=== PATIENT | female | born 1960 | race Caucasian/White ===

== ENCOUNTER → 2017-04-16 | Outpatient (CLI) | payer BC | END | disposition home or self-care (01) | LOC: C.PAPS 14:02 | PROVIDERS: ATTEND Physician Assistant | DX: Z01.419 Encounter for gynecological examination (general) (routine) without abnormal findings (principal) ==

== ENCOUNTER → 2017-05-16 | Outpatient (CLI) | payer BC ==
--- NOTE | 2017-05-16 14:26 | MAMMOGRAPHY REPORT ---
BILATERAL DIGITAL SCREENING MAMMOGRAM TOMOSYNTHESIS WITH CAD: 05/16/2017 CLINICAL HISTORY: Routine screening. Patient has no complaints. TECHNIQUE: Breast tomosynthesis in addition to standard 2D mammography was performed. Current study was also evaluated with a Computer Aided Detection (CAD) system. COMPARISON: Comparison is made to exams dated: 04/09/2016 mammogram, 04/05/2015 mammogram, 03/25/2014 mammogram, 03/12/2013 mammogram, 04/20/2011 ultrasound, and 04/20/2011 mammogram - [facility]. BREAST COMPOSITION: The tissue of both breasts is heterogeneously dense, which may obscure small mas ses. FINDINGS: No suspicious masses, calcifications, or areas of architectural distortion are noted in ei ther breast. There has been no significant interval change compared to prior exams. IMPRESSION: ACR BI-RADS CATEGORY 1: NEGATIVE There is no mammographic evidence of malignancy. A 1 year screening mammogram is recommended. The pa tient will receive written notification of the results. Approximately 10% of breast cancers are not detected with mammography. A negative mammographic report should not delay biopsy if a clinically suggestive mass is present. Gail Singleton M.D. /:05/16/2017 12:36:18 Hat Liner: Mayelin Beth, [facility] letter sent: Normal 1/2 BI-RADS Code: ACR BI-RADS Category 1: Negative
== END | disposition home or self-care (01) ==
LOC: C.MAMM 09:45
PROVIDERS: ATTEND Physician Assistant
DX: Z12.31 Encounter for screening mammogram for malignant neoplasm of breast (principal)

== ENCOUNTER 2018-11-08 20:01 | Inpatient (IN) ==
[2018-11-08] MEDS ORDERED: KETOROLAC TROMETHAMINE 15 MG/ML VIAL IV STA (20:15)
[2018-11-08] MEDS ORDERED: SODIUM CHLORIDE 0.9% 1000ML 1,000 ML IV ONE (20:15)
[2018-11-08] MEDS ORDERED: ONDANSETRON INJ 2 MG/ML 2 ML VIAL IV STA (20:15)
[2018-11-08 20:45] LABS: Basophils # (auto) 0.03 K/uL (0-0.2); Basophils % (auto) 0.4 %; Eosinophils % (auto) 3.7 %; Hematocrit (blood only) 42.8 % (37-47); Hemoglobin 14.9 g/dL (12.0-16.0); Immature Granulocytes # (auto) 0.04 K/uL (0.00-0.02); Immature Granulocytes % (auto) 0.5 %; Lymphocytes # (auto) 1.16 K/uL (1.2-3.4); Lymphocytes % (auto) 14.5 %; Mean Corpuscular Hgb Conc 34.8 g/dL (32-36); Mean Corpuscular Volume 85.9 fL (80-100); Mean Platelet Volume 11.8 fL (7.4-10.4); Monocytes # (auto) 0.63 K/uL (0.11-0.59); Monocytes % (auto) 7.9 %; Neutrophils # (auto) 5.86 K/uL (1.4-6.5); Platelet Count 230 K/uL (130-400); RDW Coefficient of Variation 12.9 % (11.5-14.5); RDW Standard Deviation 40.9 fL (36.4-46.3); Red Blood Count 4.98 M/uL (4.2-5.4); White Blood Count 8.02 K/uL (4.8-10.8)
[2018-11-08 20:56] LABS: Partial Thromboplastin Ratio 0.9; Partial Thromboplastin Time 25.5 Seconds (21.0-31.0); Prothrombin Time 10.3 Seconds (9.0-12.0)
[2018-11-08 20:57] LABS: D Dimer 720 ug/L FEU (0-500)
[2018-11-08 21:07] LABS: Alanine Aminotransferase 607 U/L (12-78); Albumin Level 3.6 gm/dl (3.4-5.0); Alkaline Phosphatase 277 U/L (45-117); BUN Creatinine Ratio 11.3 (10-20); Bilirubin,Total 3.7 mg/dl (0.2-1); Blood Urea Nitrogen 11 mg/dl (7-18); Calcium 9.5 mg/dl (8.5-10.1); Carbon Dioxide 22 mmol/L (21-32); Chloride 108 mmol/L (98-107); Creatinine Clr Calc Pharmacy 72.5 ml/min; Est GFR (African American) 78.5; Est GFR (Non-African American) 67.7; Glucose 166 mg/dl (70-99); Sodium 139 mmol/L (136-145); Total Protein 7.6 gm/dl (6.4-8.2); Troponin I < 0.015 ng/ml (0-0.045)
--- NOTE | 2018-11-08 21:08 | XRay Report ---
XR abdomen 2V w PA chest CLINICAL HISTORY: 58 years-old Female presenting with epigastric pain. TECHNIQUE: PA view of the chest and supine and upright views of the abdomen were obtained. COMPARISON: None. FINDINGS: Atherosclerosis of the aortic arch. Cardiac silhouette normal in size. Lungs and pleural spaces clear . Nonobstructive bowel gas pattern. No gross pneumoperitoneum. Allowing for bowel gas and stool, no calcifications to suggest nephrolithiasis. Osseous structures normal. IMPRESSION: 1. No acute cardiopulmonary disease. 2. No radiographic evidence of acute intra-abdominal pathology. Electronically signed by: Nash Brand M.D. 11/08/2018 9:07 PM
[2018-11-08] MEDS ORDERED: OPTIRAY 320 125ml IV PRN (21:43)
--- NOTE | 2018-11-08 21:50 | CT Scan Report ---
CT angio chest PE protocol CLINICAL HISTORY: 58 years-old Female presenting with atypical chest pain, shortness of breath. TECHNIQUE: Multidetector CT angiography of the chest was performed after administration of intravenou s contrast. 3-D volumetric and/or maximum intensity projection (MIP) images were subsequently reconst ructed for review. IV contrast: 84 mL of Optiray 320. One or more dose lowering techniques were used consistent with the principles of ALARA (as low as reasonably achievable), including automatic exposu re control, mA or kV adjustment to individual patient size, and/or use of iterative reconstruction. COMPARISON: Chest x-ray performed earlier today. CT DOSE (mGy.cm): The estimated cumulative dose is 282.14 mGy.cm. FINDINGS: Private Sector Executive topogram: Unremarkable. Pulmonary vasculature: The study is suboptimal for the assessment of the pulmonary vascular tree secondary to timing of the contrast bolus. No filling defect within the pulmonary arteries to suggest embolus. Main pulmonary ar tere is not enlarged. No flattening of the interventricular septum. No intracardiac filling defect. N o reflux of contrast into the hepatic veins. Remaining chest: Soft tissues: Normal thyroid and thoracic inlet. No axillary, supraclavicular, mediastinal, or hilar lymphadenopathy. Normal aorta. Normal heart size. No pericardial or pleural effusion. Upper abdomen n ormal. Lungs and airways: No pneumothorax. Central airways patent. Pulmonary arteries are not significantly enlarged relative to adjacent bronchi. No interlobular septal thickening. No focal infiltrate or nodu le. Musculoskeletal: Degenerative changes of the spine. IMPRESSION: 1. No evidence of pulmonary embolus. No acute intrathoracic pathology. Electronically signed by: Nash Brand M.D. 11/08/2018 9:48 PM
[2018-11-08 22:04] LABS: Potassium 3.8 mmol/L (3.5-5.1)
[2018-11-08 22:09] LABS: Bilirubin Direct 2.1 mg/dl (0-0.2)
--- NOTE | 2018-11-08 22:31 | Ultrasound Report ---
US gallbladder CLINICAL HISTORY: 58 years-old Female presenting with ro raad. TECHNIQUE: Real-time grayscale and limited color Doppler ultrasound imaging of the abdomen limited to the right upper quadrant was performed. COMPARISON: Abdominal radiograph from earlier this. FINDINGS: Pancreas: Visualized portions of the pancreatic head and body normal. Liver: Mildly hyperechogenic parenchyma, although the right hemidiaphragm remains visible, likely ind icating mild steatosis. Hyperechogenicity along the portal triads evident. The liver measures 13.8 cm in maximal sagittal dimension. No sonographic evidence of hepatic mass. Main portal vein patent with normal directional flow. Biliary: No intrahepatic biliary ductal dilatation. Common bile duct measures up to 4 mm in diameter. Gallbladder: Gallstones without evidence of gallbladder distention, wall thickening, or pericholecyst ic fluid or inflammatory change. Sonographic Landis's sign negative. Right kidney: Normal in appearance without evidence of hydronephrosis. Ascites: None. Other: None. IMPRESSION: 1. Hyperechogenicity along the portal triads in the liver parenchyma can be seen in the setting of h epatic arteriosclerosis. These foci do not convincingly localize to the portal veins in the central p ortion of the liver. Portal venous gas is not favored and was not evident on abdominal radiograph fro m earlier this exam. 2. Mild hepatic steatosis. 3. Cholelithiasis. No convincing evidence of cholecystitis. No biliary ductal dilatation. Electronically signed by: Nash Brand M.D. 11/08/2018 10:29 PM
--- NOTE | 2018-11-08 22:43 | Emergency Department Note ---
Entered by Virginie Coats acting as a scribe for Didier Wood History of Present Illness General Chief complaint: Nausea Stated complaint: NAUSEA, SEVERE PAIN, LOOSE STOOL, DEHYDRATION Time Seen by Provider: 11/08/18 20:12 Source: patient Mode of arrival: ambulatory Limitations: no limitations History of Present Illness Onset (ago): day(s) 3 Location: abdomen Pain Consistency: + constant Maximum Pain Intensity: 10 Exacerbated By: + other (She states that the abdominal pain is exacerbated with pressure. ) Associated symptoms: + nausea/vomiting, + shortness of breath and + other (The patient complains of back pain, upper abdominal pain, and diarrhea. The patient denies melena. ) The patient is a 58 year old female with a history of section who presents to the ED with complaints of constant nausea that onset 3 days ago. She notes that she had cataract surgery 4 days ago. The patient complains of back pain, upper abdominal pain, diarrhea, vomiting, and shortness of breath. She states that the abdominal pain is exacerbated with pressure. The patient denies melena. She denies alcohol use. Home Medications Home Medications Medication Instructions Recorded Confirmed Type ondansetron 4 mg PO Q8H PRN 11/08/18 11/08/18 History Allergies Allergy/AdvReac Type Severity Reaction Status Date / Time No Known Allergies Allergy Verified 11/08/18 20:45 Past Med/Surg History Medical History No known health problems Surgical History History of bilateral tubal ligation History of cataract surgery LEFT CATARACT History of section History of colonoscopy History of open reduction and internal fixation (ORIF) procedure RIGHT ANKLE Hx of LASIK S/P hardware removal RIGHT ANKLE Family History Mother Family hx colonic polyps Sister FHx: breast cancer, Onset Age: 58 Social History Preferred Language: Belarusian Communication Ability: Effective Beliefs That Will Affect Care: None Current Living Situation: Spouse Feels Safe at Home: Yes Smoking Status: Never smoker Second Hand Exposure: Yes ( A CHILD) Hx Alcohol Use: Yes Alcohol type: hard liquor Hx Substance Use: No Review of Systems See HPI for pertinent positives & negatives. and A total of 10 systems reviewed and were otherwise negative Physical Exam Vital Signs Vital Signs - 24 hr 11/08/18 20:03 11/08/18 21:58 11/08/18 22:33 Temperature 36.7 C Temperature Source Oral Sepsis Recent Fever Within 48 Hours No Sepsis New/Unexplained Change in Mental Status No Sepsis Action Taken by Nursing No Action Required Pulse Rate 75 70 Pulse Rate [Bilateral Apical] 70 68 Pulse Rhythm Regular Pulse Rhythm [Bilateral Apical] Regular Regular Pulse Strength [Bilateral Apical] Normal Normal Respiratory Rate 16 20 18 Respiratory Effort / Characteristics Non-Labored Spontaneous Respiratory Depth Normal Normal Respiratory Pattern Regular Blood Pressure 156/77 H Blood Pressure [Right Arm] 136/78 139/80 Blood Pressure Mean 103 Blood Pressure Mean [Right Arm] 97 99 Blood Pressure Position [Right Arm] Sitting Pulse Oximetry 96 97 94 Oxygen Delivery Method Room Air Room Air GENERAL: She is oriented to person, place, and time. She appears well-developed and well-nourished. She does not appear distressed. HENT: Exam performed. - Head: Normocephalic and atraumatic. - Right Ear: External ear normal. No mastoid tenderness. - Left Ear: External ear normal. No mastoid tenderness. - Mouth/Throat: The oropharynx is clear and moist. No trismus in the jaw. No dental abscesses or uvula swelling. No oropharyngeal exudate or tonsillar abscesses. EYES: Conjunctivae and EOM are normal. Pupils are equal, round, and reactive to light. Right eye exhibits no discharge. Left eye exhibits no discharge. Scleral icterus present. NECK: Normal range of motion. Neck supple. No JVD present. No spinous process tenderness present. No carotid bruit present. No rigidity. No tracheal deviation and normal range of motion present. No Brudzinski's sign and no Kernig's sign noted. CV: Normal rate, regular rhythm, normal heart sounds and intact distal pulses. There is no peripheral edema. Palpable radial pulses bue. PULM/CHEST: Effort normal and breath sounds normal. No respiratory distress. No stridor. She has no wheezes. She has no rales. Chest Wall: She exhibits no tenderness. ABD: The abdomen is soft. Bowel sounds are normal. She has no distension. No mass is present. There is tenderness of the epigastric and right upper quadrant. There is no rebound, no guarding, no Landis's sign and no tenderness at McBurney's point. Rovsig negative MUSC/SKEL: Normal range of motion. There is no peripheral edema, tenderness or deformity. LYMPH: No cervical adenopathy. NEURO: She is alert and oriented to person, place, and time. She has normal strength. No cranial nerve deficit or sensory deficit. Coordination and gait normal. GCS eye subscore is 4. GCS verbal subscore is 5. GCS motor subscore is 6. cerbellar tests wnl. SKIN: Skin is warm and dry. She is not diaphoretic. PSYCH: She has a normal mood and affect. Her behavior is normal. Judgment and thought content normal. Course 2013: Past medical records reviewed. The patient was evaluated in room B7. A complete history and physical examination was performed. 2131: Vital signs stable. Labs show a bilirubin of 3.7, ALT 607, and alkaline phosphatase 277. X-ray was within normal limits and the D-dimer was positive at 720. The patient will have a CTA of the chest to rule out PE in addition to an US to result out cholelithiasis. 2241: Signs stable. Ultrasound shows cholelithiasis no concerning evidence for cholecystitis. Mild hyper echogenicity along the portal triads and liver parenchyma can be seen in setting of hepatic arterial sclerosis. Portal venous gas not favored. Given these findings, the [facility] He will evaluate the patient further. Administered Medications Ioversol (Optiray 320 125ml) 84 ml IV ONCE PRN PRN Reason: Interaction Checking Stop: 11/12/18 21:42 Last Admin: 11/08/18 21:43 Dose: 84 ml Documented by: [id number] Discontinued Medications Sodium Chloride (Nss 1000ml) 1,000 mls @ 999 mls/hr IV .Q1H1M ONE Stop: 11/08/18 21:15 Last Infusion: 11/08/18 21:35 Dose: 0 mls/hr Documented by: [id number] Admin: 11/08/18 20:35 Dose: 999 mls/hr Documented by: [id number] Ketorolac Tromethamine (Toradol) 15 mg IV NOW STA Stop: 11/08/18 20:16 Last Admin: 11/08/18 20:38 Dose: 15 mg Documented by: [id number] Ondansetron HCl (Zofran) 4 mg IV NOW STA Stop: 11/08/18 20:16 Last Admin: 11/08/18 20:36 Dose: 4 mg Documented by: [id number] Medical Decision Making Medical Records Attestation: I reviewed the patient's medical records. Home Medications Current Medication List: was personally reviewed by me Laboratory Data Attestation: I reviewed the patient's lab results. Result diagrams: 11/08/18 20:30 11/08/18 21:39 Lab Results 11/08/18 11/08/18 11/08/18 Range/Units 20:30 20:30 20:30 WBC 8.02 (4.8-10.8) K/uL RBC 4.98 (4.2-5.4) M/uL Hgb 14.9 (12.0-16.0) g/dL Hct 42.8 (37-47) % MCV 85.9 (80-100) fL MCH 29.9 (25-34) pg MCHC 34.8 (32-36) g/dL RDW Std Deviation 40.9 (36.4-46.3) fL RDW Coeff of [place] 12.9 (11.5-14.5) % Plt Count 230 (130-400) K/uL MPV 11.8 H (7.4-10.4) fL Immature Gran % (Auto) 0.5 % Neut % (Auto) 73.0 % Lymph % (Auto) 14.5 % [place] % (Auto) 7.9 % Eos % (Auto) 3.7 % Baso % (Auto) 0.4 % Immature Gran # (Auto) 0.04 H (0.00-0.02) K/uL Neut # (Auto) 5.86 (1.4-6.5) K/uL Lymph # (Auto) 1.16 L (1.2-3.4) K/uL [place] # (Auto) 0.63 H (0.11-0.59) K/uL Eos # (Auto) 0.30 (0-0.5) K/uL Baso # (Auto) 0.03 (0-0.2) K/uL PT 10.3 (9.0-12.0) Seconds INR 1.0 (0.9-1.1) APTT 25.5 (21.0-31.0) Seconds PTT Ratio 0.9 D-Dimer 720 H* (0-500) ug/L FEU Sodium 139 (136-145) mmol/L Potassium (3.5-5.1) mmol/L Chloride 108 H (98-107) mmol/L Carbon Dioxide 22 (21-32) mmol/L Anion Gap 9.0 (3-11) BUN 11 (7-18) mg/dl Creatinine 0.93 (0.6-1.2) mg/dl Est Cr Clr Drug Dosing 72.5 ml/min Est GFR ( Amer) 78.5 Est GFR (Non-Af Amer) 67.7 BUN/Creatinine Ratio 11.3 (10-20) Glucose 166 H (70-99) mg/dl Calcium 9.5 (8.5-10.1) mg/dl Total Bilirubin 3.7 H (0.2-1) mg/dl Direct Bilirubin (0-0.2) mg/dl AST (15-37) U/L ALT 607 H (12-78) U/L Alkaline Phosphatase 277 H (45-117) U/L Troponin I < 0.015 (0-0.045) ng/ml Total Protein 7.6 (6.4-8.2) gm/dl Albumin 3.6 (3.4-5.0) gm/dl Lipase 129 (73-393) U/L Specimen Hemolysis Cancelled 11/08/18 Range/Units 21:39 WBC (4.8-10.8) K/uL RBC (4.2-5.4) M/uL Hgb (12.0-16.0) g/dL Hct (37-47) % MCV (80-100) fL MCH (25-34) pg MCHC (32-36) g/dL RDW Std Deviation (36.4-46.3) fL RDW Coeff of [place] (11.5-14.5) % Plt Count (130-400) K/uL MPV (7.4-10.4) fL Immature Gran % (Auto) % Neut % (Auto) % Lymph % (Auto) % [place] % (Auto) % Eos % (Auto) % Baso % (Auto) % Immature Gran # (Auto) (0.00-0.02) K/uL Neut # (Auto) (1.4-6.5) K/uL Lymph # (Auto) (1.2-3.4) K/uL [place] # (Auto) (0.11-0.59) K/uL Eos # (Auto) (0-0.5) K/uL Baso # (Auto) (0-0.2) K/uL PT (9.0-12.0) Seconds INR (0.9-1.1) APTT (21.0-31.0) Seconds PTT Ratio D-Dimer (0-500) ug/L FEU Sodium (136-145) mmol/L Potassium 3.8 (3.5-5.1) mmol/L Chloride (98-107) mmol/L Carbon Dioxide (21-32) mmol/L Anion Gap (3-11) BUN (7-18) mg/dl Creatinine (0.6-1.2) mg/dl Est Cr Clr Drug Dosing ml/min Est GFR ( Amer) Est GFR (Non-Af Amer) BUN/Creatinine Ratio (10-20) Glucose (70-99) mg/dl Calcium (8.5-10.1) mg/dl Total Bilirubin (0.2-1) mg/dl Direct Bilirubin 2.1 H (0-0.2) mg/dl AST 138 H (15-37) U/L ALT (12-78) U/L Alkaline Phosphatase (45-117) U/L Troponin I (0-0.045) ng/ml Total Protein (6.4-8.2) gm/dl Albumin (3.4-5.0) gm/dl Lipase (73-393) U/L Specimen Hemolysis Imaging Data Radiologist's Impression: Radiology results as stated below per my review and the radiologist's interpretation: CT angio chest PE protocol CLINICAL HISTORY: 58 years-old Female presenting with atypical chest pain, shortness of breath. TECHNIQUE: Multidetector CT angiography of the chest was performed after administration of intravenous contrast. 3-D volumetric and/or maximum intensity projection (MIP) images were subsequently reconstructed for review. IV contrast: 84 mL of Optiray 320. One or more dose lowering techniques were used consistent with the principles of ALARA (as low as reasonably achievable), including automatic exposure control, mA or kV adjustment to individual patient size, and/or use of iterative reconstruction. COMPARISON: Chest x-ray performed earlier today. CT DOSE (mGy.cm): The estimated cumulative dose is 282.14 mGy.cm. FINDINGS: Insurance Sales Producer topogram: Unremarkable. Pulmonary vasculature: The study is suboptimal for the assessment of the pulmonary vascular tree secondary to timing of the contrast bolus. No filling defect within the pulmonary arteries to suggest embolus. Main pulmonary artery is not enlarged. No flattening of the interventricular septum. No intracardiac filling defect. No reflux of contrast into the hepatic veins. Remaining chest: Soft tissues: Normal thyroid and thoracic inlet. No axillary, supraclavicular, mediastinal, or hilar lymphadenopathy. Normal aorta. Normal heart size. No pericardial or pleural effusion. Upper abdomen normal. Lungs and airways: No pneumothorax. Central airways patent. Pulmonary arteries are not significantly enlarged relative to adjacent bronchi. No interlobular sep john thickening. No focal infiltrate or nodule. Musculoskeletal: Degenerative changes of the spine. IMPRESSION: 1. No evidence of pulmonary embolus. No acute intrathoracic pathology. Electronically signed by: Nash Brand M.D. 11/08/2018 9:48 PM Dictated: 11/08/182143 Transcribed: 11/08/182143 XR abdomen 2V w PA chest CLINICAL HISTORY: 58 years-old Female presenting with epigastric pain. TECHNIQUE: PA view of the chest and supine and upright views of the abdomen were obtained. COMPARISON: None. FINDINGS: Atherosclerosis of the aortic arch. Cardiac silhouette normal in size. Lungs and pleural spaces clear. Nonobstructive bowel gas pattern. No gross pneumoperitoneum. Allowing for bowel gas and stool, no calcifications to suggest nephrolithiasis. Osseous structures normal. IMPRESSION: 1. No acute cardiopulmonary disease. 2. No radiographic evidence of acute intra-abdominal pathology. Electronically signed by: Nash Brand M.D. 11/08/2018 9:07 PM Dictated: 11/08/182104 Transcribed: 11/08/182104 US gallbladder CLINICAL HISTORY: 58 years-old Female presenting with ro raad. TECHNIQUE: Real-time grayscale and limited color Doppler ultrasound imaging of the abdomen limited to the right upper quadrant was performed. COMPARISON: Abdominal radiograph from earlier this. FINDINGS: Pancreas: Visualized portions of the pancreatic head and body normal. Liver: Mildly hyperechogenic parenchyma, although the right hemidiaphragm remains visible, likely indicating mild steatosis. Hyperechogenicity along the portal triads evident. The liver measures 13.8 cm in maximal sagittal dimension. No sonographic evidence of hepatic mass. Main portal vein patent with normal directional flow. Biliary: No intrahepatic biliary ductal dilatation. Common bile duct measures up to 4 mm in diameter. Gallbladder: Gallstones without evidence of gallbladder distention, wall thickening, or pericholecystic fluid or inflammatory change. Sonographic Landis's sign negative. Right kidney: Normal in appearance without evidence of hydronephrosis. Ascites: None. Other: None. IMPRESSION: 1. Hyperechogenicity along the portal triads in the liver parenchyma can be seen in the setting of hepatic arteriosclerosis. These foci do not convincingly localize to the portal veins in the central portion of the liver. Portal venous gas is not favored and was not evident on abdominal radiograph from earlier this exam. 2. Mild hepatic steatosis. 3. Cholelithiasis. No convincing evidence of cholecystitis. No biliary ductal dilatation. Electronically signed by: Nash Brand M.D. 11/08/2018 10:29 PM Dictated: 11/08/[id number] Transcribed: 11/08/182225 ECG Data Attestation: I personally reviewed and interpreted this ECG as follows: Indication: nausea Rate (beats per minute): 71 Rhythm: other (Sinus arrhythmia ) Findings: + other (OR, QRS, QTC within normal limits. ); no ST depression and no ST elevation Blood Pressure Blood Pressure Findings: Normal blood pressure MDM Narrative 2013: Past medical records reviewed. The patient was evaluated in room B7. A complete history and physical examination was performed. 2131: Vital signs stable. Labs show a bilirubin of 3.7, ALT 607, and alkaline phosphatase 277. X-ray was within normal limits and the D-dimer was positive at 720. The patient will have a CTA of the chest to rule out PE in addition to an US to result out cholelithiasis. 2240: Signs stable. Ultrasound shows cholelithiasis no concerning evidence for cholecystitis. Mild hyper echogenicity along the portal triads and liver parenchyma can be seen in setting of hepatic arterial sclerosis. Portal venous gas not favored. Given these findings, the patient [facility] He will evaluate the patient further. Impression & Plan Jaundice, Gallstones Discharge Plan Visit Data Chief Complaint: Nausea Stated Complaint: NAUSEA, SEVERE PAIN, LOOSE STOOL, DEHYDRATION ED Provider: Didier Wood Discharge Problem: Jaundice, Gallstones Patient Disposition: Being Evaluated by Hospitalist Forms Stand Alone Forms: My [facility] Prescriptions Prescriptions: No Action ondansetron 4 mg Tablet,Disintegrating 4 mg PO Q8H PRN (Reason: Nausea) RF: 0 Referrals Referrals: Linnea Proctor PA-C [Primary Care Provider] - The scribe's documentation has been prepared under my direction and personally reviewed by me in its entirety. I confirm that the note above accurately reflects all work, treatment, procedures, and medical decision making performed by me.
--- NOTE | 2018-11-08 23:38 | History & Physical Report ---
Date of Service November 08, 2018 Assessment & Plan (1) Abdominal pain: With abnormal LFTs Rule out choledocholithiasis Diarrhea rule out C. difficile colitis Recent outpatient antibiotic Rx Hyperglycemia rule out DM GMF Stool C. difficile CT abdomen pelvis RE abdominal pain, diarrhea May need MRCP GI consult RE abdominal pain, abnormal LFTs (Patient known to Dr. Geronimo) Check hemoglobin A1c DVT prophylaxis, Lovenox subcu Full code Addendum : Initial CT abdomen pelvis read showed possible early cholecystitis. General Surgery consult in a.m. History of Present Illness Chief Complaint: Abdominal pain Primary Care Provider: Linnea Proctor PA-C History obtained from patient, family, and records. Medical history significant for arthritis. Patient underwent outpatient cataract surgery on the right eye 4 days ago. At home postop, patient noted achy epigastric pain with nausea, emesis, nonbloody diarrhea, some chills No fever. Poor appetite at home. Somewhat hard to take a deep breath because of the belly pain. She initially attributed symptoms to post anesthesia effects which she transiently had after cataract surgery on the left eye 2 weeks ago. Medical History as above Recent antibiotic Rx for sinusitis a few weeks ago. 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 Allergies Allergy/AdvReac Type Severity Reaction Status Date / Time No Known Allergies Allergy Verified 11/08/18 20:45 Home Medications Home Medications Medication Instructions Recorded Confirmed Type ondansetron 4 mg PO Q8H PRN 11/08/18 11/08/18 History Past Med/Surg History Medical History No known health problems Surgical History History of bilateral tubal ligation History of cataract surgery LEFT CATARACT History of section History of colonoscopy History of open reduction and internal fixation (ORIF) procedure RIGHT ANKLE Hx of LASIK S/P hardware removal RIGHT ANKLE Family History Mother Family hx colonic polyps Sister FHx: breast cancer, Onset Age: 58 Social History Preferred Language: Irish Communication Ability: Effective Emergency Registrar Required: No Beliefs That Will Affect Care: None Current Living Situation: Spouse Feels Safe at Home: Yes Safety Concerns: Feels Safe At This Time Smoking Status: Never smoker Second Hand Exposure: Yes ( A CHILD) Hx Alcohol Use: No Hx Substance Use: No Review of Systems Review of Systems: As per HPI, all 10 systems reviewed, all other ROS negative Physical Exam Physical Exam: GENERAL: Comfortable, pleasant, no respiratory distress SKIN: Normal color, warm HEENT: Kaycee palpebral conjunctivae, no ptosis, dry buccal mucosa NECK : Supple, no tenderness CHEST : CTA, no tenderness HEART : RRR, no obvious murmurs ABDOMEN: Some distention, epigastric tenderness EXTREMITIES : Minimal RLE swelling (chronic as per patient), no tenderness, no other conspicuous deformities noted NEUROLOGIC : Coherent, no facial asymmetry, no other gross focality Results & Data Vital Signs (Past 12 Hours) Vital Signs Temp Pulse Pulse Resp BP BP Pulse Ox 11/08/18 22:33 68 18 139/80 94 11/08/18 21:58 70 70 20 136/78 97 11/08/18 20:03 36.7 C 75 16 156/77 H 96 Laboratory Results Laboratory Results WBC 8.02 K/uL (4.8-10.8) 11/08/18 20:30 RBC 4.98 M/uL (4.2-5.4) 11/08/18 20:30 Hgb 14.9 g/dL (12.0-16.0) 11/08/18 20:30 Hct 42.8 % (37-47) 11/08/18 20:30 MCV 85.9 fL (80-100) 11/08/18 20:30 MCH 29.9 pg (25-34) 11/08/18 20:30 MCHC 34.8 g/dL (32-36) 11/08/18 20:30 RDW Std Deviation 40.9 fL (36.4-46.3) 11/08/18 20:30 RDW Coeff of [place] 12.9 % (11.5-14.5) 11/08/18 20:30 Plt Count 230 K/uL (130-400) 11/08/18 20:30 MPV 11.8 fL (7.4-10.4) H 11/08/18 20:30 Immature Gran % (Auto) 0.5 % 11/08/18 20:30 Neut % (Auto) 73.0 % 11/08/18 20:30 Lymph % (Auto) 14.5 % 11/08/18 20:30 [place] % (Auto) 7.9 % 11/08/18 20:30 Eos % (Auto) 3.7 % 11/08/18 20:30 Baso % (Auto) 0.4 % 11/08/18 20:30 Immature Gran # (Auto) 0.04 K/uL (0.00-0.02) H 11/08/18 20:30 Neut # (Auto) 5.86 K/uL (1.4-6.5) 11/08/18 20:30 Lymph # (Auto) 1.16 K/uL (1.2-3.4) L 11/08/18 20:30 [place] # (Auto) 0.63 K/uL (0.11-0.59) H 11/08/18 20:30 Eos # (Auto) 0.30 K/uL (0-0.5) 11/08/18 20:30 Baso # (Auto) 0.03 K/uL (0-0.2) 11/08/18 20:30 PT 10.3 Seconds (9.0-12.0) 11/08/18 20:30 INR 1.0 (0.9-1.1) 11/08/18 20:30 APTT 25.5 Seconds (21.0-31.0) 11/08/18 20:30 PTT Ratio 0.9 11/08/18 20:30 D-Dimer 720 ug/L FEU (0-500) H* 11/08/18 20:30 Sodium 139 mmol/L (136-145) 11/08/18 20:30 Potassium 3.8 mmol/L (3.5-5.1) 11/08/18 21:39 Chloride 108 mmol/L (98-107) H 11/08/18 20:30 Carbon Dioxide 22 mmol/L (21-32) 11/08/18 20:30 Anion Gap 9.0 (3-11) 11/08/18 20:30 BUN 11 mg/dl (7-18) 11/08/18 20:30 Creatinine 0.93 mg/dl (0.6-1.2) 11/08/18 20:30 Est Cr Clr Drug Dosing 72.5 ml/min 11/08/18 20:30 Est GFR ( Amer) 78.5 11/08/18 20:30 Est GFR (Non-Af Amer) 67.7 11/08/18 20:30 BUN/Creatinine Ratio 11.3 (10-20) 11/08/18 20:30 Glucose 166 mg/dl (70-99) H 11/08/18 20:30 Calcium 9.5 mg/dl (8.5-10.1) 11/08/18 20:30 Magnesium 2.0 mg/dl (1.8-2.4) 11/08/18 21:39 Total Bilirubin 3.7 mg/dl (0.2-1) H 11/08/18 20:30 Direct Bilirubin 2.1 mg/dl (0-0.2) H 11/08/18 21:39 AST 138 U/L (15-37) H 11/08/18 21:39 ALT 607 U/L (12-78) H 11/08/18 20:30 Alkaline Phosphatase 277 U/L (45-117) H 11/08/18 20:30 Troponin I < 0.015 ng/ml (0-0.045) 11/08/18 20:30 Total Protein 7.6 gm/dl (6.4-8.2) 11/08/18 20:30 Albumin 3.6 gm/dl (3.4-5.0) 11/08/18 20:30 Lipase 129 U/L (73-393) 11/08/18 20:30 Specimen Hemolysis Cancelled 11/08/18 20:[address] chest: No evidence of pulmonary embolus. No acute intrathoracic pathology. Gallbladder ultrasound: 1. Hyperechogenicity along the portal triads in the liver parenchyma can be seen in the setting of hepatic arteriosclerosis. These foci do not convincingly localize to the portal veins in the central portion of the liver. Portal venous gas is not favored and was not evident on abdominal radiograph from earlier this exam. 2. Mild hepatic steatosis. 3. Cholelithiasis. No convincing evidence of cholecystitis. No biliary ductal dilatation. EKG as per my interpretation rate 70, NSR T wave inversion anteroseptal leads
[2018-11-09 00:15] LABS: Appearance Urine Clear (Clear); Bacteria Urine Automated Negative (Negative); Blood Urine Negative (Negative); Color Urine Dark Yellow; Glucose Urine UA Negative (Negative); Ketones Urine Negative (Negative); Leukocyte Esterase Urine Negative (Negative); Nitrite Urine Positive (Negative); Protein Urine Negative (Negative); Specific Gravity Urine > 1.045 (1.000-1.030); Urobilinogen Urine Negative (Negative)
[2018-11-09 00:18] LABS: Bilirubin Urine 2+ (Negative)
[2018-11-09 00:19] LABS: Ictotest Urine Positive (Negative)
[2018-11-09 00:27] LABS: Calcium Oxalate Crystals Urine Present (None Prsent); RBC Urine Automated 0-4 /hpf (0-4)
[2018-11-09] MEDS ORDERED: LORazepam 0.25 MG/0.5 ML VIAL IV PRN (00:29)
[2018-11-09] MEDS ORDERED: ACETAMINOPHEN 325 MG TAB PO PRN (00:29)
[2018-11-09] MEDS ORDERED: TRAMADOL HCL 50 MG TABLET PO PRN (00:29)
[2018-11-09] MEDS: NSS + 20MEQ KCL 20 MEQ/1,000 ML BAG IV SCH ×2 (01:28→14:08)
[2018-11-09 07:14] LABS: Basophils # (auto) 0.02 K/uL (0-0.2); Basophils % (auto) 0.2 %; Eosinophils # (auto) 0.21 K/uL (0-0.5); Eosinophils % (auto) 2.4 %; Hematocrit (blood only) 39.7 % (37-47); Hemoglobin 13.9 g/dL (12.0-16.0); Immature Granulocytes # (auto) 0.01 K/uL (0.00-0.02); Immature Granulocytes % (auto) 0.1 %; Lymphocytes # (auto) 1.08 K/uL (1.2-3.4); Lymphocytes % (auto) 12.2 %; Mean Corpuscular Volume 87.4 fL (80-100); Monocytes # (auto) 0.73 K/uL (0.11-0.59); Monocytes % (auto) 8.3 %; Neutrophils # (auto) 6.77 K/uL (1.4-6.5); Neutrophils % (auto) 76.8 %; Platelet Count 206 K/uL (130-400); RDW Standard Deviation 41.8 fL (36.4-46.3); Red Blood Count 4.54 M/uL (4.2-5.4); White Blood Count 8.82 K/uL (4.8-10.8)
[2018-11-09 07:46] LABS: Albumin Level 3.3 gm/dl (3.4-5.0); BUN Creatinine Ratio 11.1 (10-20); Calcium 8.9 mg/dl (8.5-10.1); Creatinine Clr Calc Pharmacy 81.4 ml/min; Est GFR (African American) 90.1; Est GFR (Non-African American) 77.7; Potassium 3.8 mmol/L (3.5-5.1)
[2018-11-09 07:48] LABS: Albumin Globulin Ratio 0.9 (0.9-2); Bilirubin,Total 3.2 mg/dl (0.2-1); Globulin 3.5 gm/dl (2.5-4.0); Total Protein 6.8 gm/dl (6.4-8.2)
--- NOTE | 2018-11-09 08:58 | CT Scan Report ---
ABDOMEN AND PELVIS CT WITHOUT CONTRAST CT DOSE: 542.09 mGy.cm HISTORY: Acute generalized abdominal pain with diarrhea abd pain, diarrhea TECHNIQUE: Multiaxial CT images of the abdomen and pelvis were performed without contrast. A dose lo wering technique was utilized adhering to the principles of ALARA. COMPARISON STUDY: Right upper quadrant abdominal ultrasound 11/08/2018, CTA chest 11/08/2018 FINDINGS: Mild subsegmental dependent bibasilar atelectasis. No pneumatosis or pneumoperitoneum. Imaged inferio r cardiac chambers are unremarkable. Unenhanced liver, spleen, pancreas and adrenal glands appear unremarkable. Mild gallbladder distentio n with cholelithiasis and suggestion of mild gallbladder wall thickening. Trace edema noted within th e violet hepatis tracking along the proximal duodenum. No biliary ductal dilation. Delayed phase of im aging demonstrates no focal filling defects within the collecting systems or ureters. No definite edelmira al or ureteral calculi or obstructive uropathy. Mostly decompressed urinary bladder. Uterus and adnex a are unremarkable. Aorta and IVC are within normal limits. There is no adenopathy. No bowel obstruction or focal bowel wall thickening. Mild colonic diverticulosis without acute divert iculitis. Normal appendix. Soft tissues are unremarkable. Breast parenchyma is within normal limits. Bones appear to be intact. Multilevel facet arthrosis with spondylitic spurring of the spine. IMPRESSION: 1. Cholelithiasis with mild gallbladder distention and suggestion of mild gallbladder wall thickening . Additionally, there is trace edema within the inferior violet hepatis tracking along the proximal du odenum. Clinically to exclude acute cholecystitis. 2. No bowel obstruction. 3. Normal appendix. 4. Mild colonic diverticulosis without acute diverticulitis. Electronically signed by: Ray Mcgrath M.D. 11/09/2018 8:57 AM
[2018-11-09] MEDS ORDERED: ENOXAPARIN INJ 40 MG/0.4 ML SYR SQ SCH (09:00)
--- NOTE | 2018-11-09 09:24 | Surgery Consultation ---
Date of Consultation November 09, 2018 Assessment & Plan (1) Abdominal pain: (2) Jaundice: (3) Gallstones: History of Present Illness Reason for Consultation: Abdominal pain with elevated liver function tests Requesting Physician: Tere Aguilar MD Attending Physician: Tere Aguilar MD History of Present Illness I have been asked by Dr. Aguilar to see this 58-year-old female who presented to the emergency room with upper abdominal pain mostly in the right upper quadrant. Patient developed discomfort 4 days ago while at work. It is in her upper abdomen with the right side predominating. She cannot lay on either side however it causes discomfort on the side that she is laying on. She had nausea and vomited shortly after the onset of the discomfort. She had what she describes as shaking chills following the vomiting. She continues to have nausea but has not vomited since. At the onset of the discomfort she developed diarrhea. There is a little bit more formed to her stool making them soft but they are not completely formed. She does not think she had fever. She has no dysuria or hematuria. She had a similar episode to this about 2 weeks ago however the pain was much less severe and it was self-limited. He does not report a fatty food intolerance. Allergies Allergy/AdvReac Type Severity Reaction Status Date / Time No Known Allergies Allergy Verified 11/08/18 20:45 Home Medications Home Medications Medication Instructions Recorded Confirmed Type ondansetron 4 mg PO Q8H PRN 11/08/18 11/08/18 History Patient History Medical History No known health problems Surgical History History of bilateral tubal ligation History of cataract surgery BILTERAL CATARACT History of section X 2 History of colonoscopy History of open reduction and internal fixation (ORIF) procedure RIGHT ANKLE Hx of LASIK S/P hardware removal RIGHT ANKLE Family History Mother Family hx colonic polyps Sister FHx: breast cancer, Onset Age: 58 Social History Preferred Language: Spanish Communication Ability: Effective English Professor Required: No Beliefs That Will Affect Care: None Current Living Situation: Spouse Feels Safe at Home: Yes Safety Concerns: Feels Safe At This Time Smoking Status: Never smoker Second Hand Exposure: Yes ( A CHILD) Hx Alcohol Use: No Hx Substance Use: No Review of Systems Review of Systems: All systems reviewed & are unremarkable except as noted in HPI & below Physical Exam Constitutional: well developed; no acute distress Eyes: + anicteric sclerae Neck: trachea midline Respiratory: normal respiratory effort, lungs clear to auscultation Cardiovascular: Rate/Rhythm: regular rate and regular rhythm Gastrointestinal (Abdomen): Inspection/Auscultation: abdomen not distended Percussion/Palpation: + abdomen tender (Right upper quadrant to mild palpation) and abdomen soft; no abdominal mass Skin: no rashes, warm and dry Lymphatic: no cervical lymphadenopathy Results & Data Vital Signs (Past 12 Hours) Vital Signs Temp Pulse Pulse Pulse Resp BP Pulse Ox 11/09/18 07:23 36.6 C 76 20 144/83 H 93 11/09/18 00:30 36.5 C 69 18 129/83 93 11/08/18 23:06 75 18 120/81 94 11/08/18 22:33 68 18 139/80 94 11/08/18 21:58 70 70 20 136/78 97 Laboratory Results 11/09/18 11/09/18 11/09/18 Range/Units 06:38 06:38 06:38 WBC 8.82 (4.8-10.8) K/uL RBC 4.54 (4.2-5.4) M/uL Hgb 13.9 (12.0-16.0) g/dL Hct 39.7 (37-47) % MCV 87.4 (80-100) fL MCH 30.6 (25-34) pg MCHC 35.0 (32-36) g/dL RDW Std Deviation 41.8 (36.4-46.3) fL RDW Coeff of [place] 13.0 (11.5-14.5) % Plt Count 206 (130-400) K/uL MPV 12.0 H (7.4-10.4) fL Immature Gran % (Auto) 0.1 % Neut % (Auto) 76.8 % Lymph % (Auto) 12.2 % [place]erry % (Auto) 8.3 % Eos % (Auto) 2.4 % Baso % (Auto) 0.2 % Immature Gran # (Auto) 0.01 (0.00-0.02) K/uL Neut # (Auto) 6.77 H (1.4-6.5) K/uL Lymph # (Auto) 1.08 L (1.2-3.4) K/uL [place] # (Auto) 0.73 H (0.11-0.59) K/uL Eos # (Auto) 0.21 (0-0.5) K/uL Baso # (Auto) 0.02 (0-0.2) K/uL PT (9.0-12.0) Seconds INR (0.9-1.1) APTT (21.0-31.0) Seconds PTT Ratio D-Dimer (0-500) ug/L FEU Sodium 140 (136-145) mmol/L Potassium 3.8 (3.5-5.1) mmol/L Chloride 110 H (98-107) mmol/L Carbon Dioxide 25 (21-32) mmol/L Anion Gap 5.0 (3-11) BUN 9 (7-18) mg/dl Creatinine 0.83 (0.6-1.2) mg/dl Est Cr Clr Drug Dosing 81.4 ml/min Est GFR ( Amer) 90.1 Est GFR (Non-Af Amer) 77.7 BUN/Creatinine Ratio 11.1 (10-20) Glucose 101 H (70-99) mg/dl Estimat Average Glucose Hemoglobin A1c Calcium 8.9 (8.5-10.1) mg/dl Magnesium (1.8-2.4) mg/dl Total Bilirubin 3.2 H (0.2-1) mg/dl Direct Bilirubin (0-0.2) mg/dl AST 142 H (15-37) U/L ALT 496 H (12-78) U/L Alkaline Phosphatase 266 H (45-117) U/L Troponin I (0-0.045) ng/ml Total Protein 6.8 (6.4-8.2) gm/dl Albumin 3.3 L (3.4-5.0) gm/dl Globulin 3.5 Albumin/Globulin Ratio 0.9 Lipase (73-393) U/L Specimen Hemolysis Urine Color Urine Appearance (Clear) Urine pH (4.5-7.5) Ur Specific [place] (1.000-1.030) Urine Protein (Negative) Urine Glucose (UA) (Negative) Urine Ketones (Negative) Urine Blood (Negative) Urine Nitrite (Negative) Urine Bilirubin (Negative) Urine Urobilinogen (Negative) Ur Leukocyte Esterase (Negative) Urine WBC (Auto) (0-5) /hpf Urine RBC (Auto) (0-4) /hpf U Hyaline Cast (Auto) (0-5) /lpf U Epithel Cells (Auto) (0-5) /lpf Urine Bacteria (Auto) (Negative) Urine Crystals Calcium Oxalate Crystal (None Prsent) Hepatitis C Ab Screen Pending 11/09/18 11/09/18 11/08/18 Range/Units 06:38 00:00 21:39 WBC (4.8-10.8) K/uL RBC (4.2-5.4) M/uL Hgb (12.0-16.0) g/dL Hct (37-47) % MCV (80-100) fL MCH (25-34) pg MCHC (32-36) g/dL RDW Std Deviation (36.4-46.3) fL RDW Coeff of [place] (11.5-14.5) % Plt Count (130-400) K/uL MPV (7.4-10.4) fL Immature Gran % (Auto) % Neut % (Auto) % Lymph % (Auto) % [place] % (Auto) % Eos % (Auto) % Baso % (Auto) % Immature Gran # (Auto) (0.00-0.02) K/uL Neut # (Auto) (1.4-6.5) K/uL Lymph # (Auto) (1.2-3.4) K/uL [place] # (Auto) (0.11-0.59) K/uL Eos # (Auto) (0-0.5) K/uL Baso # (Auto) (0-0.2) K/uL PT (9.0-12.0) Seconds INR (0.9-1.1) APTT (21.0-31.0) Seconds PTT Ratio D-Dimer (0-500) ug/L FEU Sodium Cancelled (136-145) mmol/L Potassium Cancelled (3.5-5.1) mmol/L Chloride Cancelled (98-107) mmol/L Carbon Dioxide Cancelled (21-32) mmol/L Anion Gap Cancelled (3-11) BUN Cancelled (7-18) mg/dl Creatinine Cancelled (0.6-1.2) mg/dl Est Cr Clr Drug Dosing Cancelled ml/min Est GFR ( Amer) Cancelled Est GFR (Non-Af Amer) Cancelled BUN/Creatinine Ratio Cancelled (10-20) Glucose Cancelled (70-99) mg/dl Estimat Average Glucose Pending Hemoglobin A1c Pending Calcium Cancelled (8.5-10.1) mg/dl Magnesium 2.0 (1.8-2.4) mg/dl Total Bilirubin Cancelled (0.2-1) mg/dl Direct Bilirubin (0-0.2) mg/dl AST Cancelled (15-37) U/L ALT Cancelled (12-78) U/L Alkaline Phosphatase Cancelled (45-117) U/L Troponin I (0-0.045) ng/ml Total Protein Cancelled (6.4-8.2) gm/dl Albumin Cancelled (3.4-5.0) gm/dl Globulin Cancelled Albumin/Globulin Ratio Cancelled Lipase (73-393) U/L Specimen Hemolysis Urine Color Dark Yellow Urine Appearance Clear (Clear) Urine pH 5.0 (4.5-7.5) Ur Specific [place] > 1.045 H (1.000-1.030) Urine Protein Negative (Negative) Urine Glucose (UA) Negative (Negative) Urine Ketones Negative (Negative) Urine Blood Negative (Negative) Urine Nitrite Positive A (Negative) Urine Bilirubin 2+ H (Negative) Urine Urobilinogen Negative (Negative) Ur Leukocyte Esterase Negative (Negative) Urine WBC (Auto) 1-5 (0-5) /hpf Urine RBC (Auto) 0-4 (0-4) /hpf U Hyaline Cast (Auto) 1-5 (0-5) /lpf U Epithel Cells (Auto) 5-10 H (0-5) /lpf Urine Bacteria (Auto) Negative (Negative) Urine Crystals Not Reportable Calcium Oxalate Crystal Present A (None Prsent) Hepatitis C Ab Screen 11/08/18 11/08/18 11/08/18 Range/Units 21:39 20:30 20:30 WBC (4.8-10.8) K/uL RBC (4.2-5.4) M/uL Hgb (12.0-16.0) g/dL Hct (37-47) % MCV (80-100) fL MCH (25-34) pg MCHC (32-36) g/dL RDW Std Deviation (36.4-46.3) fL RDW Coeff of [place] (11.5-14.5) % Plt Count (130-400) K/uL MPV (7.4-10.4) fL Immature Gran % (Auto) % Neut % (Auto) % Lymph % (Auto) % [place] % (Auto) % Eos % (Auto) % Baso % (Auto) % Immature Gran # (Auto) (0.00-0.02) K/uL Neut # (Auto) (1.4-6.5) K/uL Lymph # (Auto) (1.2-3.4) K/uL [place] # (Auto) (0.11-0.59) K/uL Eos # (Auto) (0-0.5) K/uL Baso # (Auto) (0-0.2) K/uL PT 10.3 (9.0-12.0) Seconds INR 1.0 (0.9-1.1) APTT 25.5 (21.0-31.0) Seconds PTT Ratio 0.9 D-Dimer 720 H* (0-500) ug/L FEU Sodium 139 (136-145) mmol/L Potassium 3.8 (3.5-5.1) mmol/L Chloride 108 H (98-107) mmol/L Carbon Dioxide 22 (21-32) mmol/L Anion Gap 9.0 (3-11) BUN 11 (7-18) mg/dl Creatinine 0.93 (0.6-1.2) mg/dl Est Cr Clr Drug Dosing 72.5 ml/min Est GFR ( Amer) 78.5 Est GFR (Non-Af Amer) 67.7 BUN/Creatinine Ratio 11.3 (10-20) Glucose 166 H (70-99) mg/dl Estimat Average Glucose Hemoglobin A1c Calcium 9.5 (8.5-10.1) mg/dl Magnesium (1.8-2.4) mg/dl Total Bilirubin 3.7 H (0.2-1) mg/dl Direct Bilirubin 2.1 H (0-0.2) mg/dl AST 138 H (15-37) U/L ALT 607 H (12-78) U/L Alkaline Phosphatase 277 H (45-117) U/L Troponin I < 0.015 (0-0.045) ng/ml Total Protein 7.6 (6.4-8.2) gm/dl Albumin 3.6 (3.4-5.0) gm/dl Globulin Albumin/Globulin Ratio Lipase 129 (73-393) U/L Specimen Hemolysis Cancelled Urine Color Urine Appearance (Clear) Urine pH (4.5-7.5) Ur Specific [place] (1.000-1.030) Urine Protein (Negative) Urine Glucose (UA) (Negative) Urine Ketones (Negative) Urine Blood (Negative) Urine Nitrite (Negative) Urine Bilirubin (Negative) Urine Urobilinogen (Negative) Ur Leukocyte Esterase (Negative) Urine WBC (Auto) (0-5) /hpf Urine RBC (Auto) (0-4) /hpf U Hyaline Cast (Auto) (0-5) /lpf U Epithel Cells (Auto) (0-5) /lpf Urine Bacteria (Auto) (Negative) Urine Crystals Calcium Oxalate Crystal (None Prsent) Hepatitis C Ab Screen 11/08/18 Range/Units 20:30 WBC 8.02 (4.8-10.8) K/uL RBC 4.98 (4.2-5.4) M/uL Hgb 14.9 (12.0-16.0) g/dL Hct 42.8 (37-47) % MCV 85.9 (80-100) fL MCH 29.9 (25-34) pg MCHC 34.8 (32-36) g/dL RDW Std Deviation 40.9 (36.4-46.3) fL RDW Coeff of [place] 12.9 (11.5-14.5) % Plt Count 230 (130-400) K/uL MPV 11.8 H (7.4-10.4) fL Immature Gran % (Auto) 0.5 % Neut % (Auto) 73.0 % Lymph % (Auto) 14.5 % [place] % (Auto) 7.9 % Eos % (Auto) 3.7 % Baso % (Auto) 0.4 % Immature Gran # (Auto) 0.04 H (0.00-0.02) K/uL Neut # (Auto) 5.86 (1.4-6.5) K/uL Lymph # (Auto) 1.16 L (1.2-3.4) K/uL [place] # (Auto) 0.63 H (0.11-0.59) K/uL Eos # (Auto) 0.30 (0-0.5) K/uL Baso # (Auto) 0.03 (0-0.2) K/uL PT (9.0-12.0) Seconds INR (0.9-1.1) APTT (21.0-31.0) Seconds PTT Ratio D-Dimer (0-500) ug/L FEU Sodium (136-145) mmol/L Potassium (3.5-5.1) mmol/L Chloride (98-107) mmol/L Carbon Dioxide (21-32) mmol/L Anion Gap (3-11) BUN (7-18) mg/dl Creatinine (0.6-1.2) mg/dl Est Cr Clr Drug Dosing ml/min Est GFR ( Amer) Est GFR (Non-Af Amer) BUN/Creatinine Ratio (10-20) Glucose (70-99) mg/dl Estimat Average Glucose Hemoglobin A1c Calcium (8.5-10.1) mg/dl Magnesium (1.8-2.4) mg/dl Total Bilirubin (0.2-1) mg/dl Direct Bilirubin (0-0.2) mg/dl AST (15-37) U/L ALT (12-78) U/L Alkaline Phosphatase (45-117) U/L Troponin I (0-0.045) ng/ml Total Protein (6.4-8.2) gm/dl Albumin (3.4-5.0) gm/dl Globulin Albumin/Globulin Ratio Lipase (73-393) U/L Specimen Hemolysis Urine Color Urine Appearance (Clear) Urine pH (4.5-7.5) Ur Specific [place] (1.000-1.030) Urine Protein (Negative) Urine Glucose (UA) (Negative) Urine Ketones (Negative) Urine Blood (Negative) Urine Nitrite (Negative) Urine Bilirubin (Negative) Urine Urobilinogen (Negative) Ur Leukocyte Esterase (Negative) Urine WBC (Auto) (0-5) /hpf Urine RBC (Auto) (0-4) /hpf U Hyaline Cast (Auto) (0-5) /lpf U Epithel Cells (Auto) (0-5) /lpf Urine Bacteria (Auto) (Negative) Urine Crystals Calcium Oxalate Crystal (None Prsent) Hepatitis C Ab Screen Diagnostic Findings ABDOMEN AND PELVIS CT WITHOUT CONTRAST CT DOSE: 542.09 mGy.cm HISTORY: Acute generalized abdominal pain with diarrhea abd pain, diarrhea TECHNIQUE: Multiaxial CT images of the abdomen and pelvis were performed without contrast. A dose lowering technique was utilized adhering to the principles of ALARA. COMPARISON STUDY: Right upper quadrant abdominal ultrasound 11/08/2018, CTA chest 11/08/2018 FINDINGS: Mild subsegmental dependent bibasilar atelectasis. No pneumatosis or pneumoperitoneum. Imaged inferior cardiac chambers are unremarkable. Unenhanced liver, spleen, pancreas and adrenal glands appear unremarkable. Mild gallbladder distention with cholelithiasis and suggestion of mild gallbladder wall thickening. Trace edema noted within the violet hepatis tracking along the proximal duodenum. No biliary ductal dilation. Delayed phase of imaging demonstrates no focal filling defects within the collecting systems or ureters. No definite renal or ureteral calculi or obstructive uropathy. Mostly decompressed urinary bladder. Uterus and adnexa are unremarkable. Aorta and IVC are within normal limits. There is no adenopathy. No bowel obstruction or focal bowel wall thickening. Mild colonic diverticulosis without acute diverticulitis. Normal appendix. Soft tissues are unremarkable. Breast parenchyma is within normal limits. Bones appear to be intact. Multilevel facet arthrosis with spondylitic spurring of the spine. IMPRESSION: 1. Cholelithiasis with mild gallbladder distention and suggestion of mild gallbladder wall thickening. Additionally, there is trace edema within the inferior violet hepatis tracking along the proximal duodenum. Clinically to exclude acute cholecystitis. 2. No bowel obstruction. 3. Normal appendix. 4. Mild colonic diverticulosis without acute diverticulitis. US gallbladder CLINICAL HISTORY: 58 years-old Female presenting with ro raad. TECHNIQUE: Real-time grayscale and limited color Doppler ultrasound imaging of the abdomen limited to the right upper quadrant was performed. COMPARISON: Abdominal radiograph from earlier this. FINDINGS: Pancreas: Visualized portions of the pancreatic head and body normal. Liver: Mildly hyperechogenic parenchyma, although the right hemidiaphragm remains visible, likely indicating mild steatosis. Hyperechogenicity along the portal triads evident. The liver measures 13.8 cm in maximal sagittal dimension. No sonographic evidence of hepatic mass. Main portal vein patent with normal directional flow. Biliary: No intrahepatic biliary ductal dilatation. Common bile duct measures up to 4 mm in diameter. Gallbladder: Gallstones without evidence of gallbladder distention, wall thickening, or pericholecystic fluid or inflammatory change. Sonographic Landis's sign negative. Right kidney: Normal in appearance without evidence of hydronephrosis. Ascites: None. Other: None. IMPRESSION: 1. Hyperechogenicity along the portal triads in the liver parenchyma can be seen in the setting of hepatic arteriosclerosis. These foci do not convincingly localize to the portal veins in the central portion of the liver. Portal venous gas is not favored and was not evident on abdominal radiograph from earlier this exam. 2. Mild hepatic steatosis. 3. Cholelithiasis. No convincing evidence of cholecystitis. No biliary ductal dilatation.
[2018-11-09] MEDS: MoRPHine SULFATE 4 MG/ML 1 ML CARP\\VIAL IV PRN ×2 (12:45→21:42)
--- NOTE | 2018-11-09 15:49 | Hospitalist Progress Note ---
Date of Service November 09, 2018 Assessment & Plan (1) RUQ abdominal pain: (2) Gallstones: Present on admission with RUQ abdominal pain associated with nausea/vomiting and diarrhea Gallbladder u/s showed hyperechogenicity along the portal triads in the liver parenchyma can be seen in the setting of hepatic arteriosclerosis and cholelithiasis. CT abd/pelvis showed cholelithiasis with mild gallbladder distention and suggestion of mild gallbladder wall thickening. Elevated liver enzymes on admission Continue pain control with IV morphine Continue IV fluid Surgery on board MRCP showed cholelithiasis with gallbladder distention, mild wall thickening and trace pericholecystic fluid/edema suggests acute cholecystitis. Clinically improves (3) Transaminitis: (4) Jaundice: AST 138, ALT 607 and ALK 277 on admission ALT trending down to 400's AST slightly increases to 142 Gallbladder u/s showed hyperechogenicity along the portal triads in the liver parenchyma can be seen in the setting of hepatic arteriosclerosis and cholelithiasis. Gastro on board MRCP showed Multiple filling defects within the cystic duct suggestive of small gallstones. Additionally there is choledocholithiasis. Case discussed with Gastro and plan for ERCP (will check OR schedule) OK to start on ice/chips NPO after midnight Hyperglycemia Hba1c pending Monitor BS Elevated Ddimer CTA chest showed no evidence for PE saturated well on RA DVT px on lovenox subq for now Hold Lovenox (anticipate ERCP or surgery) CODE STATUS FULL CODE Subjective Pt was seen and examined Lying in bed with no distress Pt said that pain improves with morphine Last episode of diarrhea was yesterday Pt denies any chest pain, palpitation, dizziness and SOB Physical Exam Physical Exam: General- No acute distress Head- atraumatic Eyes- PERRL, EOMI, ENT- oropharynx clear Neck- supple, no JVD Lungs- clear to auscultation Heart- regular rhythm; no murmur Abdomen- +RUQ tenderness, Non distended Extremities- no calf tenderness Neuro- alert, oriented x 3; PERRL, EOMI; no facial palsy; no dysarthria Skin- warm & dry Results & Data Vital Signs (Past 12 Hours) Vital Signs Temp Pulse Resp BP Pulse Ox 11/09/18 15:00 37.3 C 70 18 135/83 96 11/09/18 07:23 36.6 C 76 20 144/83 H 93
[2018-11-09] MEDS: PROMETHAZINE HCL 12.5 MG in SODIUM CHLORIDE 0.9% 50 ML IV PRN (16:35)
--- NOTE | 2018-11-09 17:00 | Magnetic Resonance Report ---
MR MRCP HISTORY: 58 years-old Female RUQ pain with elevated LFT's acute right upper quadrant abdominal pain with acutely elevated LFTs COMPARISON: CT abdomen and pelvis of same day, right upper quadrant ultrasound 11/08/2018 TECHNIQUE: MRCP without the use of IV contrast was obtained according to institutional protocol. FINDINGS: Foot Setter localizer images demonstrate right hemidiaphragmatic elevation. No gross abnormality identified about the imaged lower chest. Liver, spleen, pancreas and adrenal glands appear unremarkable. Mild n onspecific bilateral perinephric stranding. Indeterminate subcentimeter T2 hyperintense lesions of th e left greater the right kidney are not characterized on this study, possibly reflective of the renal cysts. Aorta and IVC are unremarkable. No adenopathy. No bowel obstruction. Gallbladder is distended measuring up to 9.0 x 3.7 cm. Gallbladder wall is mildly thickened, 4 mm. Tr corrie pericholecystic and violet hepatis free fluid tracks along the duodenum. Cholelithiasis with layer ing gallbladder sludge about the gallbladder neck. There are multiple filling defects noted within th e cystic duct. 3 mm filling defect noted about the mid to distal common bile duct, image 83 series 7 and image 178 of series 7 L1. Pancreatic duct is unremarkable. No pancreatic ductal dilation without aneurysm. No intrahepatic biliary ductal dilation. The common bile duct measures 4 mm transversely. IMPRESSION: 1. Cholelithiasis with gallbladder distention, mild wall thickening and trace pericholecystic fluid/e hedy suggests acute cholecystitis. 2. Multiple filling defects within the cystic duct suggestive of small gallstones. Additionally there is choledocholithiasis. 3. No significant biliary ductal dilation. The above report was generated using voice recognition software. It may contain grammatical, syntax o r spelling errors. Electronically signed by: Ray Mcgrath M.D. 11/09/2018 4:58 PM
--- NOTE | 2018-11-09 17:04 | Gastrointestinal Consultation ---
Date of Consultation November 09, 2018 Assessment & Plan (1) Jaundice: For elevated LFTS and gallstones rule out choledocholithiasis so see what MRCP shows. If MRCP c/w stones in duct then needs ERCP. I did explain ERCP proc and risks to patient and in case it is needed which include but not limited to med reaction, bleeding, perforatiion, aspiration, infeaction, and pancreatitis (up 10% of patients and can be severe and life threatening) gallstones--eventual cholecystectomy needed whether or not ERCP done epi pain likely biliary in nature. diarrhea--resolved History of Present Illness Reason for Consultation: abd pain, elev LFTS Requesting Physician: Dr Kiran Pena Attending Physician: Tere Aguilar MD History of Present Illness CC abd pain HPI with patient for H and P. Reviewed recent [facility] EMR for GI data and recent [facility] EMR. Noted colonscopy by DR Pereira 05/2015 for fhx and pers hx of polyps which showed left colon diverticulosis with plan for repeat colo 5 years. Pt 2 weeks ago with epi pain resolved then 4 days ago epi pain with n/v and diarrhea. She had cataract surgery 11/04/18 as well. Vomitng and diarrhea resolved but pain max 10/10 remained. Some shortness of breath also. Pain controlled to 5/10 on IV narcotics. Pt had nl WBC and lipas on admit but elevated LFTSs (no old to compare in [facility] EMR) and D dimer. CTA neg for PE, U/S and CT a/p with gallstones but duct 4 mm, also fatty liver and diverticulosis. MRCP done this afternoon with results pending. LFTS this am somewhat better. Allergies Allergy/AdvReac Type Severity Reaction Status Date / Time No Known Allergies Allergy Verified 11/08/18 20:45 Home Medications Home Medications Medication Instructions Recorded Confirmed Type ondansetron 4 mg PO Q8H PRN 11/08/18 11/08/18 History Patient History Medical History No known health problems Surgical History History of bilateral tubal ligation History of cataract surgery BILTERAL CATARACT History of section X 2 History of colonoscopy History of open reduction and internal fixation (ORIF) procedure RIGHT ANKLE Hx of LASIK S/P hardware removal RIGHT ANKLE Family History Mother Family hx colonic polyps Sister FHx: breast cancer, Onset Age: 58 Social History Preferred Language: Bengali Communication Ability: Effective 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: No Beliefs That Will Affect Care: None Current Living Situation: Spouse Feels Safe at Home: Yes Safety Concerns: Feels Safe At This Time Smoking Status: Never smoker Second Hand Exposure: Yes ( A CHILD) Hx Alcohol Use: No Hx Substance Use: No Review of Systems Review of Systems: All systems reviewed & are unremarkable except as noted in HPI & below Physical Exam Constitutional: WD/WN, vitals as above Eyes: PERRL Neck: normal visual inspection and trachea midline Respiratory: normal respiratory effort, lungs clear to auscultation Cardiovascular: RRR, no murmur, no edema Gastrointestinal (Abdomen): pos bs, soft, no guarding nor rebound, Musculoskeletal: Extremities: extremities normal to inspection Skin: normal turgor Neurologic: PERRL, EOMI, accommodation nl, no face palsy, no dysarthria Psychiatric: A+Ox3, euthymic affect Results & Data Vital Signs (Past 12 Hours) Vital Signs Temp Pulse Resp BP Pulse Ox 11/09/18 15:00 37.3 C 70 18 135/83 96 11/09/18 07:23 36.6 C 76 20 144/83 H 93
[2018-11-10] MEDS: NSS + 20MEQ KCL 20 MEQ/1,000 ML BAG IV SCH ×2 (03:45→18:15)
[2018-11-10] MEDS: MoRPHine SULFATE 4 MG/ML 1 ML CARP\\VIAL IV PRN ×2 (03:50→10:17)
[2018-11-10] MEDS: PROMETHAZINE HCL 12.5 MG in SODIUM CHLORIDE 0.9% 50 ML IV PRN ×2 (04:53→13:47)
[2018-11-10 06:37] LABS: Basophils # (auto) 0.02 K/uL (0-0.2); Basophils % (auto) 0.2 %; Eosinophils # (auto) 0.02 K/uL (0-0.5); Eosinophils % (auto) 0.2 %; Hematocrit (blood only) 39.4 % (37-47); Hemoglobin 12.9 g/dL (12.0-16.0); Immature Granulocytes # (auto) 0.03 K/uL (0.00-0.02); Immature Granulocytes % (auto) 0.3 %; Lymphocytes # (auto) 1.21 K/uL (1.2-3.4); Lymphocytes % (auto) 10.4 %; Mean Corpuscular Hgb Conc 32.7 g/dL (32-36); Mean Corpuscular Volume 89.1 fL (80-100); Mean Platelet Volume 11.7 fL (7.4-10.4); Monocytes # (auto) 1.04 K/uL (0.11-0.59); Neutrophils # (auto) 9.28 K/uL (1.4-6.5); Neutrophils % (auto) 79.9 %; Platelet Count 203 K/uL (130-400); RDW Coefficient of Variation 12.9 % (11.5-14.5); RDW Standard Deviation 42.5 fL (36.4-46.3); Red Blood Count 4.42 M/uL (4.2-5.4)
[2018-11-10 06:37] LABS: Estimated Average Glucose 120 mg/dl; Hemoglobin A1C 5.8 % (4.5-5.6)
[2018-11-10 07:02] LABS: BUN Creatinine Ratio 11.5 (10-20); Calcium 8.9 mg/dl (8.5-10.1); Creatinine Clr Calc Pharmacy 86.6 ml/min; Est GFR (African American) 97.1; Est GFR (Non-African American) 83.8
[2018-11-10 07:06] LABS: Albumin Globulin Ratio 0.8 (0.9-2); Bilirubin,Total 3.6 mg/dl (0.2-1); Globulin 3.6 gm/dl (2.5-4.0); Total Protein 6.6 gm/dl (6.4-8.2)
--- NOTE | 2018-11-10 12:54 | Hospitalist Progress Note ---
Date of Service November 10, 2018 Assessment & Plan (1) RUQ abdominal pain: (2) Gallstones: Present on admission with RUQ abdominal pain associated with nausea/vomiting and diarrhea Gallbladder u/s showed hyperechogenicity along the portal triads in the liver parenchyma can be seen in the setting of hepatic arteriosclerosis and cholelithiasis. CT abd/pelvis showed cholelithiasis with mild gallbladder distention and suggestion of mild gallbladder wall thickening. MRCP showed cholelithiasis with gallbladder distention, mild wall thickening and trace pericholecystic fluid/edema suggests acute cholecystitis. Elevated liver enzymes on admission, trending down slowly Continue pain control with IV morphine Continue IV fluid Surgery on board Will need cholecystectomy, will discuss with surgery on time frame (3) Transaminitis: (4) Jaundice: AST 138, ALT 607 and ALK 277 on admission ALT trending down to 400's --> 360 AST slightly increases to 142--> 84 Gallbladder u/s showed hyperechogenicity along the portal triads in the liver parenchyma can be seen in the setting of hepatic arteriosclerosis and cholelithiasis. MRCP showed Multiple filling defects within the cystic duct suggestive of small gallstones. Additionally there is choledocholithiasis. Gastro on board Plan for ERCP today Keep NPO for now Continue monitor LFTs Hyperglycemia Hba1c 5.8 Monitor BS Elevated Ddimer CTA chest showed no evidence for PE saturated well on RA Elevated WBC WBC mild elevated today Possible reactive Patient is afebrile If WBC continues to elevate and develops any fever, will start on Zosyn Continue monitor CBC DVT px on lovenox subq for now Hold Lovenox (anticipate ERCP or surgery) CODE STATUS FULL CODE Disposition Plan for ERCP today Will discharge once medically stable Subjective Pt was seen and examined Lying in bed with at bedside Pt said that she is having a lot of pain in her abdomen now She is trying not to ask for the pain med She is very anxious about the ERCP that schedule for today Denies any chest pain, palpitation, dizziness and SOB Physical Exam Physical Exam: General- No acute distress Head- atraumatic Eyes- PERRL, EOMI, ENT- oropharynx clear Neck- supple, no JVD Lungs- clear to auscultation Heart- regular rhythm; no murmur Abdomen- +RUQ tenderness, Non distended Extremities- no calf tenderness Neuro- alert, oriented x 3; PERRL, EOMI; no facial palsy; no dysarthria Skin- warm & dry Results & Data Vital Signs (Past 12 Hours) Vital Signs Temp Pulse Resp BP Pulse Ox 11/10/18 07:13 37.3 C 70 18 131/73 92
--- NOTE | 2018-11-10 13:23 | Surgery Progress Note ---
Date of Service November 10, 2018 Assessment & Plan (1) Choledocholithiasis with acute cholecystitis: MRCP showing evidence of gallbladder wall thickening and pericholecystic fluid concerning for acute cholecystitis along with stones in cystic duct and common bile duct Mild increase in wbc today to 11.6K Afebrile T. bili increased to 3.6 (3.2) improvement of LFTS AST 84 (142) LEC325 (496) ALK Phos 264 (266) Lipase 50 (129) Plan: ERCP today Will need to determine timing of cholecystectomy given concern for acute cholecystitis on MRCP -Dr. Noriega discussed with patient cholecystectomy tomorrow afternoon (11/11/18) - Will discuss surgical procedure, risks, and recovery tomorrow morning with patient Continue IV fluids Start IV Cefoxitin given evidence of acute cholecystitis Continue IV ZOfran prn nausea Continue pain management as needed NPO after midnight follow am labs SCDs for DVt prophylaxis Dr. Noriega has seen and examined patient agrees with above Supervising Physician Co-Signing Physician Notes I seen the patient examined her and I agree with the above note. We are planning for laparoscopic cholecystectomy with cholangiogram. We again discussed the procedure and the possible need to convert to an open procedure and discussed some of the possible complications. She signed a consent form. Subjective having abdominal pain today, had IV pain medication about 2 hours ago which controlled pain +nausea this morning, no vomiting no chest pain/sob scheduled for ERCP later today but unsure what time Physical Exam Constitutional: WD/WN, vitals as above no acute distress Respiratory: normal respiratory effort; no respiratory distress Gastrointestinal (Abdomen): Inspection/Auscultation: abdomen normal to inspection; abdomen not distended and + abnormal bowel sounds Percussion/Palpation: + abdomen tender (epigastric and RUQ), + guarding (RUQ) and abdomen soft; abdomen not rigid Skin: no rashes, warm and dry + jaundice Psychiatric: A+Ox3, euthymic affect Results & Data Vital Signs (Past 12 Hours) Vital Signs Temp Pulse Resp BP Pulse Ox 11/10/18 07:13 37.3 C 70 18 131/73 92 Laboratory Results 11/10/18 11/10/18 11/09/18 Range/Units 06:03 06:03 06:38 WBC 11.60 H (4.8-10.8) K/uL RBC 4.42 (4.2-5.4) M/uL Hgb 12.9 (12.0-16.0) g/dL Hct 39.4 (37-47) % MCV 89.1 (80-100) fL MCH 29.2 (25-34) pg MCHC 32.7 (32-36) g/dL RDW Std Deviation 42.5 (36.4-46.3) fL RDW Coeff of [place] 12.9 (11.5-14.5) % Plt Count 203 (130-400) K/uL MPV 11.7 H (7.4-10.4) fL Immature Gran % (Auto) 0.3 % Neut % (Auto) 79.9 % Lymph % (Auto) 10.4 % Clinch % (Auto) 9.0 % Eos % (Auto) 0.2 % Baso % (Auto) 0.2 % Immature Gran # (Auto) 0.03 H (0.00-0.02) K/uL Neut # (Auto) 9.28 H (1.4-6.5) K/uL Lymph # (Auto) 1.21 (1.2-3.4) K/uL Clinch # (Auto) 1.04 H (0.11-0.59) K/uL Eos # (Auto) 0.02 (0-0.5) K/uL Baso # (Auto) 0.02 (0-0.2) K/uL Sodium 139 Potassium 4.0 Chloride 107 Carbon Dioxide 25 Anion Gap 7.0 BUN 9 Creatinine 0.78 Est Cr Clr Drug Dosing 86.6 Est GFR ( Amer) 97.1 Est GFR (Non-Af Amer) 83.8 BUN/Creatinine Ratio 11.5 Glucose 104 H Estimat Average Glucose 120 mg/dl Hemoglobin A1c 5.8 H (4.5-5.6) % Calcium 8.9 Magnesium (1.8-2.4) mg/dl Total Bilirubin 3.6 H AST 84 H ALT 360 H Alkaline Phosphatase 264 H Total Protein 6.6 Albumin 3.0 L Globulin 3.6 Albumin/Globulin Ratio 0.8 L Lipase 50 L (73-393) U/L 11/08/18 Range/Units 21:39 WBC (4.8-10.8) K/uL RBC (4.2-5.4) M/uL Hgb (12.0-16.0) g/dL Hct (37-47) % MCV (80-100) fL MCH (25-34) pg MCHC (32-36) g/dL RDW Std Deviation (36.4-46.3) fL RDW Coeff of [place] (11.5-14.5) % Plt Count (130-400) K/uL MPV (7.4-10.4) fL Immature Gran % (Auto) % Neut % (Auto) % Lymph % (Auto) % Clinch % (Auto) % Eos % (Auto) % Baso % (Auto) % Immature Gran # (Auto) (0.00-0.02) K/uL Neut # (Auto) (1.4-6.5) K/uL Lymph # (Auto) (1.2-3.4) K/uL Clinch # (Auto) (0.11-0.59) K/uL Eos # (Auto) (0-0.5) K/uL Baso # (Auto) (0-0.2) K/uL Sodium Cancelled Potassium Cancelled Chloride Cancelled Carbon Dioxide Cancelled Anion Gap Cancelled BUN Cancelled Creatinine Cancelled Est Cr Clr Drug Dosing Cancelled Est GFR ( Amer) Cancelled Est GFR (Non-Af Amer) Cancelled BUN/Creatinine Ratio Cancelled Glucose Cancelled Estimat Average Glucose mg/dl Hemoglobin A1c (4.5-5.6) % Calcium Cancelled Magnesium 2.0 (1.8-2.4) mg/dl Total Bilirubin Cancelled AST Cancelled ALT Cancelled Alkaline Phosphatase Cancelled Total Protein Cancelled Albumin Cancelled Globulin Cancelled Albumin/Globulin Ratio Cancelled Lipase (73-393) U/L Diagnostic Findings MR MRCP HISTORY: 58 years-old Female RUQ pain with elevated LFT's acute right upper quadrant abdominal pain with acutely elevated LFTs COMPARISON: CT abdomen and pelvis of same day, right upper quadrant ultrasound 11/08/2018 TECHNIQUE: MRCP without the use of IV contrast was obtained according to institutional protocol. FINDINGS: Steel Heater localizer images demonstrate right hemidiaphragmatic elevation. No gross abnormality identified about the imaged lower chest. Liver, spleen, pancreas and adrenal glands appear unremarkable. Mild nonspecific bilateral perinephric stranding. Indeterminate subcentimeter T2 hyperintense lesions of the left greater the right kidney are not characterized on this study, possibly reflective of the renal cysts. Aorta and IVC are unremarkable. No adenopathy. No bowel obstruction. Gallbladder is distended measuring up to 9.0 x 3.7 cm. Gallbladder wall is mildly thickened, 4 mm. Trace pericholecystic and violet hepatis free fluid tracks along the duodenum. Cholelithiasis with layering gallbladder sludge about the gallbladder neck. There are multiple filling defects noted within the cystic duct. 3 mm filling defect noted about the mid to distal common bile duct, image 83 series 7 and image 178 of series 7 L1. Pancreatic duct is unremarkable. No pancreatic ductal dilation without aneurysm. No intrahepatic biliary ductal dilation. The common bile duct measures 4 mm transversely. IMPRESSION: 1. Cholelithiasis with gallbladder distention, mild wall thickening and trace pericholecystic fluid/edema suggests acute cholecystitis. 2. Multiple filling defects within the cystic duct suggestive of small gallstones. Additionally there is choledocholithiasis. 3. No significant biliary ductal dilation.
[2018-11-10] MEDS: cefOXitin 2,000 MG in DEXTROSE 5% 50 ML IV SCH ×2 (15:10→19:17)
--- NOTE | 2018-11-10 15:54 | History & Physical Report ---
Date of Service November 10, 2018 History of Present Illness Chief Complaint: CBD stones Primary Care Provider: Linnea Proctor PA-C For ERCP Allergies Allergy/AdvReac Type Severity Reaction Status Date / Time No Known Allergies Allergy Verified 11/08/18 20:45 Home Medications Home Medications Medication Instructions Recorded Confirmed Type ondansetron 4 mg PO Q8H PRN 11/08/18 11/08/18 History Past Med/Surg History Medical History No known health problems Surgical History History of bilateral tubal ligation History of cataract surgery BILTERAL CATARACT History of section X 2 History of colonoscopy History of open reduction and internal fixation (ORIF) procedure RIGHT ANKLE Hx of LASIK S/P hardware removal RIGHT ANKLE Family History Mother Family hx colonic polyps Sister FHx: breast cancer, Onset Age: 58 Social History Preferred Language: Bulgarian Communication Ability: Effective Machine 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
[2018-11-10] MEDS ORDERED: INDOMETHACIN 50 MG SUPP PR SCH (16:00)
[2018-11-10] MEDS ORDERED: SUCCINYLCHOLINE CHLORIDE 20 MG/ML 10 ML VIAL ONE (16:02)
[2018-11-10] MEDS ORDERED: LIDOCAINE HCL 2% 2 ML VIAL/AMP(20MG/ML) INFIL ONE (16:02)
[2018-11-10] MEDS ORDERED: PROPOFOL IV EMULSION 10 MG/ML 20 ML VIAL IV ONE (16:02)
[2018-11-10] MEDS ORDERED: MIDAZOLAM HCL 1 MG/ML 2ML VIAL ONE (16:02)
[2018-11-10] MEDS ORDERED: fentaNYL citrate 100 MCG/2 ML VIAL ONE (16:03)
--- NOTE | 2018-11-10 16:21 | Anesthesiology Consultation ---
Date of Service November 10, 2018 Assessment & Plan Chart Review Chart Review: Acceptable Risk for Surgery and Patient NOT seen in Pre Admission Testing Consults Requested none ASA [id number] Proposed Anesthesia Anesthesia Type: General Risk / Benefits Reviewed With: PT / POA / Parent / Guardian, Accepts Plan and Informed Consent Obtained History Surgery Operation Date: 11/10/18 13:20 Proposed Procedures p Endoscopic Retrograde Cholangiopancreatogram - Jose Geronimo Operation Date: 11/11/18 13:30 Proposed Procedures p Laparoscopic Cholecystectomy - Dominic Noriega MD Height/Weight Height: 5 ft 7 in Weight: 82.1 kg Allergies Allergy/AdvReac Type Severity Reaction Status Date / Time No Known Allergies Allergy Verified 11/08/18 20:45 Medications Home Medications Medication Instructions Recorded Confirmed Last Taken ondansetron 4 mg PO Q8H PRN 11/08/18 11/08/18 Unknown Active Medications Generic Name Dose Route Start Last Admin Trade Name Freq PRN Reason Stop Dose Admin Acetaminophen 325 mg 11/09/18 00:29 11/10/18 15:09 Tylenol PO 12/09/18 00:28 325 mg Q6H PRN Administration pain/fever Potassium Chloride/Sodium Chloride 20 meq in 1,000 mls @ 75 mls/hr 11/09/18 01:15 11/10/18 05:11 Normal Saline W/20 Meq Kcl IV 12/09/18 01:14 75 mls/hr .[id number] BALWINDER Infusion Promethazine HCl 12.5 mg/ 50.5 mls @ 202 mls/hr 11/09/18 00:29 11/10/18 14:16 Sodium Chloride IV 12/09/18 00:28 Infused Q6H PRN Infusion Nausea And Vomiting Cefoxitin Sodium 2,000 mg/ 60 mls @ 100 mls/hr 11/10/18 14:00 11/10/18 15:10 Dextrose IV 11/20/18 13:59 100 mls/hr Q6H BALWINDER Administration Protocol Morphine Sulfate 4 mg 11/09/18 00:29 11/10/18 10:17 Morphine Sulfate IV 11/23/18 00:28 4 mg Q4H PRN Administration Pain NPO Date Last Intake of Fluids: 11/09/18 Time Last Intake of Fluids: 23:59 Last Intake of Fluids Comment: NPO at midnight, only had ice chips Date Last Intake of Solids: 11/09/18 Time Last Intake of Solids: 23:59 Last Intake of Solids Comment: no solids on 3-11 shift Past Medical History Medical History No known health problems Exercise / Class Metabolic Activity II 4-5 Yardwork/Stairs/Walk up hill Past Family History Family History Mother Family hx colonic polyps Sister FHx: breast cancer, Onset Age: 58 Past Surgical History Surgical History History of bilateral tubal ligation History of cataract surgery BILTERAL CATARACT History of section X 2 History of colonoscopy History of open reduction and internal fixation (ORIF) procedure RIGHT ANKLE Hx of LASIK S/P hardware removal RIGHT ANKLE Past Anesthesia History No Hx of Anesthesia Complications and No Family Hx of Anesthesia Complications History of PONV No Hx of PONV and No Hx of Motion Sickness Social History Smoking Status: Never smoker Hx Alcohol Use: No Alcohol type: beer, wine and hard liquor alcohol intake frequency: holidays/special occasions only Hx Substance Use: No substance use type: does not use Physical Exam Vital Signs Last Vital Signs Temp 36.8 C 11/10/18 15:50 Pulse 82 11/10/18 15:50 Resp 20 11/10/18 15:50 BP 154/79 H 11/10/18 15:50 Pulse Ox 92 11/10/18 15:50 ENMT Mouth: no dentition abnormality Thyromental Distance: < 3.5 Finger Breadths Mallampati Class: II Neck normal visual inspection and trachea midline; neck extension not limited Respiratory normal respiratory effort Auscultation: lungs clear to auscultation bilaterally Cardiovascular Rate/Rhythm: regular rate and regular rhythm Heart Sounds: no murmur Vessels: no carotid bruit Musculoskeletal Spine: normal cervical ROM Neurologic moves all extremities Motor/Sensory: no sensory deficit Psychiatric Orientation: alert and oriented x 3 Testing Laboratory Results 11/10/18 06:03 11/10/18 06:03 11/09/18 06:38 Hemoglobin A1c 5.8 H Electrocardiogram Date: 11/08/18 Findings: + NSR @ (at 71;ST and T wave abnml;? anterior ischemia) Chest X-Ray Date: 11/08/18 Findings: + NAD
--- NOTE | 2018-11-10 17:18 | GI REPORT ---
Patient Name: Mayra Calzada Procedure Date: 11/10/2018 4:30 PM Date of : 1960 Admit Type: Inpatient Age: 58 Gender: Female Attending MD: Jose Geronimo MD Procedure: ERCP Providers: Jose Geronimo MD Referring MD: Referred Self Indications: Suspected bile duct stone(s) Medicines: General Anesthesia Complications: No immediate complications. Estimated Blood Loss: Estimated blood loss: none. Procedure: Pre-Anesthesia Assessment: - Prior to the procedure, a History and Physical was performed, and patient medications, allergies and sensitivities were reviewed. The patient's tolerance of previous anesthesia was reviewed. - The risks and benefits of the procedure and the sedation options and risks were discussed with the patient. All questions were answered and informed consent was obtained. After obtaining informed consent, the scope was passed under direct vision. Throughout the procedure, the patient's blood pressure, pulse, and oxygen saturations were monitored continuously. The scope was introduced through the mouth, and advanced to the duodenum and used to inject contrast into the bile duct. The ERCP was accomplished without difficulty. The patient tolerated the procedure well. Findings: The major papilla was normal. The bile duct was deeply cannulated with the short-nosed traction sphincterotome. Contrast was injected. I personally interpreted the bile duct images. There was brisk flow of contrast through the ducts. Opacification of the main bile duct was successful. Neither stones nor ductal dilatation were present in the in the biliary system. A 4 mm biliary sphincterotomy was made with a short nose sphincterotome using ERBE electrocautery. There was no post-sphincterotomy bleeding. To discover objects, the biliary tree was swept with an 8.5 mm balloon starting at the upper third of the main bile duct. Nothing was found. There is an incidental duodenal diverticulum. Impression: - The major papilla appeared normal. - A biliary sphincterotomy was performed. - The biliary tree was swept and nothing was found. Recommendation: - Return patient [facility] for [facility] care. Jose Geronimo M.D. Jose Geronimo MD 11/10/2018 5:18:17 PM This report has been signed electronically. Note Initiated On: 11/10/2018 4:30 PM Number of Addenda: 0 I attest to the content of the Intraoperative Record and orders documented therein, exceptions below {[id number]}
[2018-11-10] MEDS ORDERED: ATROPINE SULFATE 0.1 MG/ML 10ML SYR IV PRN (17:27)
[2018-11-10] MEDS ORDERED: ePHEDrine sulfate 50 MG/ML AMP IV PRN (17:27)
--- NOTE | 2018-11-10 17:53 | Anesthesiology Progress Note ---
Date of Service November 10, 2018 Anesthesia Post Procedure Vital Signs Vital Signs: Temp Pulse Pulse Resp BP Pulse Ox 11/10/18 17:50 37.7 C H 73 18 142/78 H 94 11/10/18 17:40 37.3 C 78 20 170/79 H 94 11/10/18 17:30 37.3 C 84 21 156/77 H 98 11/10/18 17:20 37.3 C 98 H 16 147/71 H 96 11/10/18 15:41 39.2 C H 80 20 154/71 H 93 11/10/18 15:15 36.8 C 82 20 154/79 H 92 11/10/18 07:13 37.3 C 70 18 131/73 92 11/09/18 23:35 37.8 C H 68 18 144/71 H 92 11/09/18 21:38 73 155/80 H 95 Pain Intensity Right Upper Abdomen: Pain Intensity: 0 Medial Back: Pain Intensity: 0 Transfer of Care Handoff Completed per policy Notes Mental Status: alert / awake / arousable Patient Amnestic to Procedure: Yes Nausea / Vomiting: adequately controlled Pain: adequately controlled Airway Patency, RR, SpO2: stable & adequate BP & HR: stable & adequate Hydration State: stable & adequate Anesthetic Complications: no major complications apparent
[2018-11-10] MEDS: SODIUM CHLORIDE 0.9% 1000ML 1,000 ML IV SCH (18:16)
--- NOTE | 2018-11-10 18:36 | Fluoroscopy Report ---
[place] ERCP biliary ductal CLINICAL HISTORY: EXPLORE DUCTS COMPARISON STUDY: MRCP 11/09/2018. FLUOROSCOPY TIME: 1 minute and 24 seconds. 3 fluoroscopic spot images of the upper abdomen were submi tted.. FINDINGS: The endoscope is seen at the second portion of the duodenum and the ampulla is cannulated. A balloon sweep was performed. The opacified common bile duct appears patent on the final image. The gallbladder did not opacify during this examination. IMPRESSION: Fluoroscopy provided for ERCP. Electronically signed by: Harsha Oliveira M.D. 11/10/2018 6:35 PM
--- NOTE | 2018-11-10 19:18 | Progress Note ---
DATE: 11/10/2018 The patient underwent an ERCP today for suspected common bile duct stones on imaging studies. ERCP showed a normal papilla. This was separate from an incidental duodenal diverticulum which was more proximal. The bile duct was cannulated and injected, the pancreatic duct was not manipulated or injected. The common bile duct was thin in caliber, but there were no obvious stones seen. Sphincterotomy was performed and the duct was swept twice with 8.5 mm balloon and no stones or sludge was recovered. A followup injection was performed and the common bile duct looked clean without any stones. The patient tolerated the procedure well and was returned to the floor for continued care.
[2018-11-11] MEDS: cefOXitin 2,000 MG in DEXTROSE 5% 50 ML IV SCH ×4 (01:12→20:28)
[2018-11-11 07:31] LABS: Basophils # (auto) 0.01 K/uL (0-0.2); Basophils % (auto) 0.1 %; Eosinophils # (auto) 0.05 K/uL (0-0.5); Eosinophils % (auto) 0.4 %; Hematocrit (blood only) 36.2 % (37-47); Hemoglobin 11.8 g/dL (12.0-16.0); Immature Granulocytes # (auto) 0.06 K/uL (0.00-0.02); Immature Granulocytes % (auto) 0.5 %; Lymphocytes # (auto) 0.93 K/uL (1.2-3.4); Lymphocytes % (auto) 8.3 %; Mean Corpuscular Hgb Conc 32.6 g/dL (32-36); Mean Corpuscular Volume 88.3 fL (80-100); Monocytes # (auto) 1.04 K/uL (0.11-0.59); Monocytes % (auto) 9.2 %; Neutrophils # (auto) 9.17 K/uL (1.4-6.5); Neutrophils % (auto) 81.5 %; Platelet Count 160 K/uL (130-400); RDW Coefficient of Variation 12.9 % (11.5-14.5); RDW Standard Deviation 41.3 fL (36.4-46.3); White Blood Count 11.26 K/uL (4.8-10.8)
--- NOTE | 2018-11-11 08:00 | Anesthesiology Progress Note ---
Date of Service November 11, 2018 Anesthesia Post Procedure Vital Signs Vital Signs: Temp Pulse Pulse Resp BP Pulse Ox 11/11/18 06:49 36.9 C 75 18 134/84 94 11/11/18 00:26 36.5 C 60 18 126/72 95 11/10/18 20:57 37.0 C 91 H 20 122/72 90 11/10/18 20:07 37.0 C 60 20 112/71 94 11/10/18 19:04 36.4 C L 62 20 124/75 93 11/10/18 18:41 37.2 C 63 20 126/75 94 11/10/18 18:00 37.5 C 69 16 131/70 93 11/10/18 17:50 37.7 C H 73 18 142/78 H 94 11/10/18 17:40 37.3 C 78 20 170/79 H 94 11/10/18 17:30 37.3 C 84 21 156/77 H 98 11/10/18 17:20 37.3 C 98 H 16 147/71 H 96 11/10/18 15:41 39.2 C H 80 20 154/71 H 93 11/10/18 15:15 36.8 C 82 20 154/79 H 92 Pain Intensity Right Upper Abdomen: Pain Intensity: 0 Medial Back: Pain Intensity: 0 Notes Mental Status: alert / awake / arousable and participated in evaluation Nausea / Vomiting: adequately controlled Pain: adequately controlled Airway Patency, RR, SpO2: stable & adequate BP & HR: stable & adequate Hydration State: stable & adequate
[2018-11-11 08:18] LABS: Albumin Level 2.4 gm/dl (3.4-5.0); BUN Creatinine Ratio 18.5 (10-20); Calcium 8.8 mg/dl (8.5-10.1); Creatinine Clr Calc Pharmacy 91.3 ml/min; Est GFR (African American) 103.5; Est GFR (Non-African American) 89.3; Potassium 4.1 mmol/L (3.5-5.1)
[2018-11-11 08:24] LABS: Albumin Globulin Ratio 0.6 (0.9-2); Bilirubin,Total 4.6 mg/dl (0.2-1); Globulin 3.8 gm/dl (2.5-4.0); Total Protein 6.2 gm/dl (6.4-8.2)
[2018-11-11] MEDS: NSS + 20MEQ KCL 20 MEQ/1,000 ML BAG IV SCH ×2 (08:31→17:12)
--- NOTE | 2018-11-11 10:00 | Anesthesiology Consultation ---
Date of Service November 11, 2018 Assessment & Plan (1) Encounter for pre-operative examination: Chart Review Chart Review: Acceptable Risk for Surgery and Patient NOT seen in Pre Admission Testing Consults Requested none ASA ASA2 Proposed Anesthesia Anesthesia Type: General Risk / Benefits Reviewed With: PT / POA / Parent / Guardian, Accepts Plan and In formed Consent Obtained History Surgery Operation Date: 11/10/18 13:20 Proposed Procedures p Endoscopic Retrograde Cholangiopancreatogram - Jose Geronimo Operation Date: 11/11/18 13:30 Proposed Procedures p Laparoscopic Cholecystectomy - Dominic Noriega MD Height/Weight Height: 5 ft 7 in Weight: 82.1 kg Allergies Allergy/AdvReac Type Severity Reaction Status Date / Time No Known Allergies Allergy Verified 11/08/18 20:45 Medications Home Medications Medication Instructions Recorded Confirmed Last Taken ondansetron 4 mg PO Q8H PRN 11/08/18 11/08/18 Unknown Active Medications Generic Name Dose Route Start Last Admin Trade Name Freq PRN Reason Stop Dose Admin Acetaminophen 325 mg 11/09/18 00:29 11/10/18 15:09 Tylenol PO 12/09/18 00:28 325 mg Q6H PRN Administration pain/fever Potassium Chloride/Sodium Chloride 20 meq in 1,000 mls @ 75 mls/hr 11/09/18 01:15 11/11/18 08:31 Normal Saline W/20 Meq Kcl IV 12/09/18 01:14 75 mls/hr .[id number] BALWINDER Administration Promethazine HCl 12.5 mg/ 50.5 mls @ 202 mls/hr 11/09/18 00:29 11/10/18 14:16 Sodium Chloride IV 12/09/18 00:28 Infused Q6H PRN Infusion Nausea And Vomiting Cefoxitin Sodium 2,000 mg/ 60 mls @ 100 mls/hr 11/10/18 14:00 11/11/18 09:06 Dextrose IV 11/20/18 13:59 Infused Q6H BALWINDER Infusion Protocol Sodium Chloride 1,000 mls @ 15 mls/hr 11/10/18 15:45 11/10/18 18:16 Nss 1000ml IV 12/10/18 15:44 Not Given .Q24H BALWINDER Morphine Sulfate 4 mg 11/09/18 00:29 11/10/18 10:17 Morphine Sulfate IV 11/23/18 00:28 4 mg Q4H PRN Administration Pain NPO Date Last Intake of Fluids: 11/10/18 Time Last Intake of Fluids: 23:59 Last Intake of Fluids Comment: NPO at midnight, only had ice chips Date Last Intake of Solids: 11/09/18 Time Last Intake of Solids: 23:59 Last Intake of Solids Comment: no solids on 3-11 shift Past Medical History Medical History No known health problems Exercise / Class Metabolic Activity II 4-5 Yardwork/Stairs/Walk up hill Past Family History Family History Mother Family hx colonic polyps Sister FHx: breast cancer, Onset Age: 58 Past Surgical History Surgical History History of bilateral tubal ligation History of cataract surgery BILTERAL CATARACT History of section X 2 History of colonoscopy History of open reduction and internal fixation (ORIF) procedure RIGHT ANKLE Hx of LASIK S/P hardware removal RIGHT ANKLE Past Anesthesia History No Hx of Anesthesia Complications and No Family Hx of Anesthesia Complications History of PONV No Hx of PONV and No Hx of Motion Sickness Social History Smoking Status: Never smoker Hx Alcohol Use: No Alcohol type: beer, wine and hard liquor alcohol intake frequency: holidays/special occasions only Hx Substance Use: No substance use type: does not use Review of Systems Patient denies active symptoms of GERD. Negative for chest pain or shortness of breath. Physical Exam Vital Signs Last Vital Signs Temp 36.9 C 11/11/18 06:49 Pulse 75 11/11/18 06:49 Resp 18 11/11/18 06:49 BP 134/84 11/11/18 06:49 Pulse Ox 94 11/11/18 06:49 Constitutional not obese ENMT Mouth: + small oral opening; no TMJ abnormality Thyromental Distance: < 3.5 Finger Breadths Mallampati Class: III Neck normal visual inspection; neck extension not limited Respiratory normal respiratory effort Auscultation: lungs clear to auscultation bilaterally Cardiovascular Rate/Rhythm: regular rate and regular rhythm Heart Sounds: no murmur Vessels: no carotid bruit Neurologic moves all extremities Motor/Sensory: no sensory deficit Psychiatric Orientation: alert and oriented x 3 Testing Electrocardiogram Date: 11/08/18 Findings: + NSR @ (at 71;ST and T wave abnml;? anterior ischemia) Chest X-Ray Date: 11/08/18 Findings: + NAD
--- NOTE | 2018-11-11 10:37 | Hospitalist Progress Note ---
Date of Service November 11, 2018 Assessment & Plan (1) Choledocholithiasis with acute cholecystitis: Present on admission Status post laparoscopic cholecystectomy today by Dr. Noriega Postoperative day 0 Continue pain management Diet advanced (2) RUQ abdominal pain: Present on admission with RUQ abdominal pain associated with nausea/vomiting and diarrhea Gallbladder u/s showed hyperechogenicity along the portal triads in the liver parenchyma can be seen in the setting of hepatic arteriosclerosis and cholelithiasis. CT abd/pelvis showed cholelithiasis with mild gallbladder distention and suggestion of mild gallbladder wall thickening. Elevated liver enzymes on admission Appreciate GI input, status post ERCP Underwent laparoscopic cholecystectomy today (3) Gallstones: Present on admission with RUQ abdominal pain associated with nausea/vomiting and diarrhea Gallbladder u/s showed hyperechogenicity along the portal triads in the liver parenchyma can be seen in the setting of hepatic arteriosclerosis and cholelithiasis. CT abd/pelvis showed cholelithiasis with mild gallbladder distention and suggestion of mild gallbladder wall thickening. MRCP showed cholelithiasis with gallbladder distention, mild wall thickening and trace pericholecystic fluid/edema suggests acute cholecystitis. Elevated liver enzymes on admission, trending down slowly Status post ERCP on 11/10/2018 Followed by laparoscopic cholecystectomy on 11/11/2018 (4) Transaminitis: Secondary to acute cholecystitis/cholelithiasis AST ALT level continues to improve Status post cholecystectomy today-laparoscopic procedure Follow daily labs (5) Jaundice: Secondary to acute cholecystitis Gallbladder u/s showed hyperechogenicity along the portal triads in the liver parenchyma can be seen in the setting of hepatic arteriosclerosis and cholelithiasis. MRCP showed Multiple filling defects within the cystic duct suggestive of small gallstones. Additionally there is choledocholithiasis. Status post laparoscopic cholecystectomy, repeat liver function test in a.m. GI and surgery following CODE STATUS FULL CODE Disposition Will discharge once medically stable Subjective Status post laparoscopic cholecystectomy today Just returned from the OR, Complains of right upper quadrant pain around ANGÉLICA drain site No fever or chills No nausea vomiting Physical Exam Constitutional: WD/WN, vitals as above well developed; no acute distress Eyes: + anicteric sclerae and PERRL ENMT: Mouth: no dentition abnormality Neck: normal visual inspection and trachea midline; neck extension not limited Respiratory: normal respiratory effort, lungs clear to auscultation normal respiratory effort; no respiratory distress Auscultation: lungs clear to auscultation bilaterally Cardiovascular: RRR, no murmur, no edema Gastrointestinal (Abdomen): Status post laparoscopic cholecystectomy , ANGÉLICA drain present Musculoskeletal: Spine: normal cervical ROM Extremities: extremities normal to inspection Skin: no rashes, warm and dry normal turgor and + jaundice Neurologic: PERRL, EOMI, accommodation nl, no face palsy, no dysarthria moves all extremities Motor/Sensory: no sensory deficit Psychiatric: A+Ox3, euthymic affect Orientation: alert and oriented x 3 Lymphatic: no cervical lymphadenopathy Results & Data Vital Signs (Past 12 Hours) Vital Signs Temp Pulse Resp BP Pulse Ox 11/11/18 06:49 36.9 C 75 18 134/84 94 11/11/18 00:26 36.5 C 60 18 126/72 95
[2018-11-11] MEDS ORDERED: ROCURONIUM BROMIDE 10 MG/ML 5 ML VIAL ONE ×3 (11:10→14:17)
[2018-11-11] MEDS ORDERED: DEXAMETHASONE SOD INJ 4 MG/ML VIAL ONE (11:10)
[2018-11-11] MEDS ORDERED: PROPOFOL IV EMULSION 10 MG/ML 20 ML VIAL IV ONE (11:10)
[2018-11-11] MEDS ORDERED: LIDOCAINE HCL 2% 2 ML VIAL/AMP(20MG/ML) INFIL ONE (11:10)
[2018-11-11] MEDS ORDERED: ONDANSETRON INJ 2 MG/ML 2 ML VIAL ONE (11:10)
[2018-11-11] MEDS ORDERED: BUPIVACAINE 0.5 % 5 MG/1 ML MPF 30ML VIAL ONE (11:26)
[2018-11-11] MEDS ORDERED: CEFAZOLIN 250 MG/ML 1 GM VIAL ONE ×2 (11:26→13:53)
[2018-11-11] MEDS ORDERED: MIDAZOLAM HCL 1 MG/ML 2ML VIAL ONE (11:27)
[2018-11-11] MEDS ORDERED: fentaNYL citrate 100 MCG/2 ML VIAL ONE ×3 (11:27→14:57)
[2018-11-11] MEDS ORDERED: HEPARIN (PORCINE) 1000 UNIT/ML 10 ML (CATH LAB USE ONLY) ONE (11:31)
[2018-11-11] MEDS ORDERED: ONDANSETRON INJ 2 MG/ML 2 ML VIAL IV PRN (11:32)
[2018-11-11] MEDS ORDERED: ePHEDrine sulfate 50 MG/ML AMP IV PRN (11:32)
[2018-11-11] MEDS ORDERED: PROMETHAZINE HCL 12.5 MG in SODIUM CHLORIDE 0.9% 50 ML IV PRN (11:32)
[2018-11-11] MEDS ORDERED: ATROPINE SULFATE 0.1 MG/ML 10ML SYR IV PRN (11:32)
--- NOTE | 2018-11-11 12:24 | Surgery Progress Note ---
Date of Service November 11, 2018 Assessment & Plan (1) RUQ abdominal pain: 58 year-old female who presented to hospital with epigastric pain, nausea, vomiting and diarrhea. She had an ultrasound which showed gallstones. CT scan of abdomen and pelvis showed mild gallbladder distention, wall thickening, and edema for which acute cholecystitis was in the differential. She had elevation of her t. bili and LFTS concerning for biliary obstruction. MRCP showed mild gallbladder distention, wall thickening and pericholecystic fluid concerning for acute cholecystitis as well as small stones in cystic duct and 3 mm stone in distal commone bile duct consistent with choledocholithiasis. Underwent ERCP on 11/10/2018 which showed no evidence of common duct obstruction. t. bili elevated to 4.6 today (3.6 yesterday) LFTS improved s/p ERCP AST 84 --> 41 ALT 360 --> 232 ALK 264 --> 261 Plan: Unsure of etiology of increase in T. bili given negative ERCP. Question about possible passing of another small stone following ERCP and prior to am lab draw. Fever yesterday prior to ERCP. Findings of acute cholecystitis on MRCP. Given this would recommend cholecystectomy to prevent further episodes in future. Discussed with patient laparoscopic cholecystectomy with possible open procedure as well as risks of procedure including bleeding, infection, injury to common bile duct, bile leak, injury to surrounding organs and tissues, cardiopulmonary complications, and blood clots. Discussed recovery period of 2 weeks with laparoscopic approach and 6 weeks with open approach. Will add intraoperative cholangiogram given elevation of t.bili today continue IV Abx COntinue NPO Informed consent will be obtained in preop with Dr. Noriega repeat am labs to monitor t. bili post op (2) Jaundice: (3) Gallstones: Supervising Physician Co-Signing Physician Notes I interviewed and examined this patient I agree with the above note Subjective had fever prior to ERCP yesterday of 101 and 103 had sweating last night pain improved compared to yesterday no n/v Physical Exam Constitutional: WD/WN, vitals as above Eyes: icteric sclerae Respiratory: normal respiratory effort; no respiratory distress Skin: no rashes, warm and dry Psychiatric: A+Ox3, euthymic affect Results & Data Vital Signs (Past 12 Hours) Vital Signs Temp Pulse Pulse Resp BP Pulse Ox 11/11/18 11:44 37.3 C 81 18 149/87 H 97 11/11/18 06:49 36.9 C 75 18 134/84 94 11/11/18 00:26 36.5 C 60 18 126/72 95 Laboratory Results 11/11/18 11/11/18 11/11/18 Range/Units 07:06 07:06 06:51 WBC 11.26 H (4.8-10.8) K/uL RBC 4.10 L (4.2-5.4) M/uL Hgb 11.8 L (12.0-16.0) g/dL Hct 36.2 L (37-47) % MCV 88.3 (80-100) fL MCH 28.8 (25-34) pg MCHC 32.6 (32-36) g/dL RDW Std Deviation 41.3 (36.4-46.3) fL RDW Coeff of [place] 12.9 (11.5-14.5) % Plt Count 160 (130-400) K/uL MPV 12.0 H (7.4-10.4) fL Immature Gran % (Auto) 0.5 % Neut % (Auto) 81.5 % Lymph % (Auto) 8.3 % [place] % (Auto) 9.2 % Eos % (Auto) 0.4 % Baso % (Auto) 0.1 % Immature Gran # (Auto) 0.06 H (0.00-0.02) K/uL Neut # (Auto) 9.17 H (1.4-6.5) K/uL Lymph # (Auto) 0.93 L (1.2-3.4) K/uL [place] # (Auto) 1.04 H (0.11-0.59) K/uL Eos # (Auto) 0.05 (0-0.5) K/uL Baso # (Auto) 0.01 (0-0.2) K/uL Sodium 140 (136-145) mmol/L Potassium 4.1 (3.5-5.1) mmol/L Chloride 107 (98-107) mmol/L Carbon Dioxide 27 (21-32) mmol/L Anion Gap 7.0 (3-11) BUN 14 D (7-18) mg/dl Creatinine 0.74 (0.6-1.2) mg/dl Est Cr Clr Drug Dosing 91.3 ml/min Est GFR ( Amer) 103.5 Est GFR (Non-Af Amer) 89.3 BUN/Creatinine Ratio 18.5 (10-20) Glucose 94 (70-99) mg/dl Calcium 8.8 (8.5-10.1) mg/dl Total Bilirubin 4.6 H (0.2-1) mg/dl AST 41 H (15-37) U/L ALT 232 H (12-78) U/L Alkaline Phosphatase 221 H (45-117) U/L Total Protein 6.2 L (6.4-8.2) gm/dl Albumin 2.4 L (3.4-5.0) gm/dl Globulin 3.8 (2.5-4.0) gm/dl Albumin/Globulin Ratio 0.6 L (0.9-2) Lipase 57 L (73-393) U/L Stl C. diff Tox B Gene Negative Cdiff Gene (Neg) Diagnostic Findings ERCP yesterday without any choledocholithasis or stricture
[2018-11-11] MEDS ORDERED: CONRAY 60% 50 ML VIAL ONE (13:02)
[2018-11-11] MEDS ORDERED: GLYCOPYRROLATE 0.2 MG/ML VIAL ONE ×2 (14:32→14:33)
[2018-11-11] MEDS ORDERED: NEOSTIGMINE METHYLSULFATE 5 MG/5 ML SYR ONE (14:32)
[2018-11-11] MEDS ORDERED: FLOSEAL HEMOSTATIC MATRIX 10ML TOP ONE (14:44)
--- NOTE | 2018-11-11 15:12 | Post Operative Brief Note ---
Immediate Post Op Note v1 Date of Surgery November 11, 2018 Pre & Post Diagnosis Operation Date: 11/10/18 13:20 Pre-Op Diagnosis: common bile duct stones Post-Op Diagnosis: no bile duct stones seen, incidental finding of duodenal diverticulum Operation Date: 11/11/18 13:30 Pre-Op Diagnosis: cholelithiasis Post-Op Diagnosis: cholelithiasis, acute cholecystitis Procedure Operation Date: 11/10/18 13:20 Actual Procedures p Endoscopic Retrograde Cholangiopancreatogram, spincterotomy - Jose Geronimo Operation Date: 11/11/18 13:30 Actual Procedures p Laparoscopic Cholecystectomy(Not Applicable) - Dominic Noriega MD Surgeon Dominic Noriega MD [facility] Cementer Lai Gaines [facility] Estimated Blood Loss 25 Findings Consistent with Post-Op Diagnosis Specimens Gallbladder and contents Drains Viktor-Pak Drain (10flt in subhepatic space) Anesthesia Type General Complications none
[2018-11-11] MEDS: PROMETHAZINE HCL 12.5 MG in SODIUM CHLORIDE 0.9% 50 ML IV PRN (15:47)
[2018-11-11] MEDS: fentaNYL citrate 100 MCG/2 ML VIAL IV PRN ×2 (15:47→15:56)
[2018-11-11] MEDS ORDERED: HYDROmorphone INJ 1 MG/ML SYRINGE ONE ×2 (16:01→18:18)
[2018-11-11] MEDS ORDERED: HYDROmorphone INJ 0.5 MG/0.5 ML SYR IV PRN (16:20)
--- NOTE | 2018-11-11 16:23 | Anesthesiology Progress Note ---
Date of Service November 11, 2018 Anesthesia Post Procedure Vital Signs Vital Signs: Temp Pulse Pulse Pulse Resp BP BP 11/11/18 16:06 73 19 134/80 11/11/18 16:05 73 20 11/11/18 16:01 72 21 143/82 H 11/11/18 16:00 73 20 11/11/18 15:56 70 24 150/87 H 11/11/18 15:55 71 21 11/11/18 15:51 67 21 11/11/18 15:50 67 18 147/76 H 11/11/18 15:46 68 19 141/75 H 11/11/18 15:45 69 17 11/11/18 15:41 75 22 145/80 H 11/11/18 15:40 65 20 11/11/18 15:36 66 18 144/78 H 11/11/18 15:35 67 19 11/11/18 15:31 66 19 138/74 11/11/18 15:30 67 13 11/11/18 15:26 69 15 141/75 H 11/11/18 15:25 67 18 11/11/18 15:21 71 20 140/83 11/11/18 15:20 73 24 11/11/18 15:19 36.5 C 72 72 20 140/75 140/73 11/11/18 11:44 37.3 C 81 18 149/87 H 11/11/18 06:49 36.9 C 75 18 134/84 11/11/18 00:26 36.5 C 60 18 126/72 11/10/18 20:57 37.0 C 91 H 20 122/72 11/10/18 20:07 37.0 C 60 20 112/71 11/10/18 19:04 36.4 C L 62 20 124/75 11/10/18 18:41 37.2 C 63 20 126/75 11/10/18 18:00 37.5 C 69 16 131/70 11/10/18 17:50 37.7 C H 73 18 142/78 H 11/10/18 17:40 37.3 C 78 20 170/79 H 11/10/18 17:30 37.3 C 84 21 156/77 H 11/10/18 17:20 37.3 C 98 H 16 147/71 H Pulse Ox 11/11/18 16:06 94 11/11/18 16:05 95 11/11/18 16:01 93 11/11/18 16:00 92 11/11/18 15:56 95 11/11/18 15:55 95 11/11/18 15:51 89 L 11/11/18 15:50 90 11/11/18 15:46 90 11/11/18 15:45 91 11/11/18 15:41 96 11/11/18 15:40 95 11/11/18 15:36 95 11/11/18 15:35 95 11/11/18 15:31 96 11/11/18 15:30 94 11/11/18 15:26 94 11/11/18 15:25 94 11/11/18 15:21 92 11/11/18 15:20 93 11/11/18 15:19 94 11/11/18 11:44 97 11/11/18 06:49 94 11/11/18 00:26 95 11/10/18 20:57 90 11/10/18 20:07 94 11/10/18 19:04 93 11/10/18 18:41 94 11/10/18 18:00 93 11/10/18 17:50 94 11/10/18 17:40 94 11/10/18 17:30 98 11/10/18 17:20 96 Pain Intensity Right Upper Abdomen: Pain Intensity: 0 Medial Back: Pain Intensity: 0 Abdomen: Pain Intensity: 8 Transfer of Care Handoff Completed per policy Notes Mental Status: alert / awake / arousable and participated in evaluation Patient Amnestic to Procedure: Yes Nausea / Vomiting: adequately controlled Pain: adequately controlled Airway Patency, RR, SpO2: stable & adequate BP & HR: stable & adequate Hydration State: stable & adequate Anesthetic Complications: no major complications apparent and Pt Satisfied with anesthetic care
--- NOTE | 2018-11-11 16:29 | Gastroenterology Progress Note ---
Date of Service November 11, 2018 Assessment & Plan (1) Jaundice: s/p ERCP no stones, worse today. Repeat in am and if continues to be elevated may need serologic testing. gallstones--s/p raad epi pain likely biliary in nature. diarrhea--resolved Subjective cc f/u elevated LFTS, gallstones HPI Pt seen in PACU post lap raad. Awake and alert. Some incisional abd pain. She states had sore throat post ERCP otherwise ok. Noted lipase normal this am. TB worse, LFTS better. Physical Exam Constitutional: WD/WN, vitals as above Respiratory: normal respiratory effort, lungs clear to auscultation Cardiovascular: RRR, no murmur, no edema Gastrointestinal (Abdomen): soft, no guarding nor rebound Psychiatric: A+Ox3, euthymic affect Results & Data Vital Signs (Past 12 Hours) Vital Signs Temp Pulse Pulse Pulse Resp BP BP 11/11/18 16:21 70 20 147/81 H 11/11/18 16:20 71 22 11/11/18 16:16 71 20 147/77 H 11/11/18 16:15 72 20 11/11/18 16:11 73 20 142/76 H 11/11/18 16:10 72 18 11/11/18 16:07 72 20 11/11/18 16:06 73 19 134/80 11/11/18 16:05 73 20 11/11/18 16:01 72 21 143/82 H 11/11/18 16:00 73 20 11/11/18 15:56 70 24 150/87 H 11/11/18 15:55 71 21 11/11/18 15:51 67 21 11/11/18 15:50 67 18 147/76 H 11/11/18 15:46 68 19 141/75 H 11/11/18 15:45 69 17 11/11/18 15:41 75 22 145/80 H 11/11/18 15:40 65 20 11/11/18 15:36 66 18 144/78 H 11/11/18 15:35 67 19 11/11/18 15:31 66 19 138/74 11/11/18 15:30 67 13 11/11/18 15:26 69 15 141/75 H 11/11/18 15:25 67 18 11/11/18 15:21 71 20 140/83 11/11/18 15:20 73 24 11/11/18 15:19 36.5 C 72 72 20 140/75 140/73 11/11/18 11:44 37.3 C 81 18 149/87 H 11/11/18 06:49 36.9 C 75 18 134/84 Pulse Ox 11/11/18 16:21 94 11/11/18 16:20 94 11/11/18 16:16 94 11/11/18 16:15 94 11/11/18 16:11 95 11/11/18 16:10 95 11/11/18 16:07 95 11/11/18 16:06 94 11/11/18 16:05 95 11/11/18 16:01 93 11/11/18 16:00 92 11/11/18 15:56 95 11/11/18 15:55 95 11/11/18 15:51 89 L 11/11/18 15:50 90 11/11/18 15:46 90 11/11/18 15:45 91 11/11/18 15:41 96 11/11/18 15:40 95 11/11/18 15:36 95 11/11/18 15:35 95 11/11/18 15:31 96 11/11/18 15:30 94 11/11/18 15:26 94 11/11/18 15:25 94 11/11/18 15:21 92 11/11/18 15:20 93 11/11/18 15:19 94 11/11/18 11:44 97 11/11/18 06:49 94
[2018-11-11] MEDS ORDERED: MoRPHine SULFATE 4 MG/ML 1 ML CARP\\VIAL IV PRN (17:01)
[2018-11-11] MEDS ORDERED: MoRPHine SULFATE 4 MG/ML 1 ML CARP\\VIAL ONE (17:10)
[2018-11-11] MEDS: SODIUM CHLORIDE 0.9% 1000ML 1,000 ML IV SCH (17:19)
[2018-11-11] MEDS ORDERED: HYDROmorphone INJ 1 MG/ML SYRINGE IV STA (17:55)
[2018-11-11] MEDS: HYDROmorphone INJ 1 MG/ML SYRINGE IV PRN (20:28)
[2018-11-11] MEDS: OXYCODONE/ACETAMINOPHEN 5mg/325mg TAB PO PRN (21:28)
--- NOTE | 2018-11-11 23:57 | Operative Report ---
DATE OF OPERATION: 11/11/2018 DATE OF PROCEDURE: 11/11/2018 PREOPERATIVE DIAGNOSES: Cholelithiasis, history of choledocholithiasis. POSTOPERATIVE DIAGNOSES: Cholelithiasis, history of choledocholithiasis, acute cholecystitis. PROCEDURE: Laparoscopic cholecystectomy. SURGEON: Dominic Noriega MD REPORTING DEVELOPER: Tasha Aparicio PA-C FINDINGS: The gallbladder wall was markedly thickened. There was some purulent bile within the gallbladder. There was a gallstone lodged in the neck of the gallbladder. What appeared to be the cystic duct was not dilated. There was a lot of thickening of the tissues around the infundibulum and neck of the gallbladder and also around the cystic duct. Demonstrated by ERCP the day before, the cystic duct was quite long. The liver appeared to be of normal size and contour. The visible bowel appeared normal. TECHNIQUE: The patient was given a general anesthetic and the area was prepped and draped in the usual sterile fashion. Transverse incision was made below the umbilicus, carried down through the subcutaneous tissue to the fascia which was grasped with 2 Jaci clamps and incised between. The peritoneum was identified, incised, and the introducer was placed bluntly. The abdomen was then insufflated to a pressure of 15 mmHg of carbon dioxide. The upper midline, midclavicular and anterior axillary introducers were placed under direct vision through small skin incisions. I could not grasp the gallbladder due to the dilation and the thickness of the wall and so the drainage needle was then passed under direct vision. It was entered into the gallbladder and dark bile was drained. I was then able to grasp the gallbladder and place upward traction. There were some adhesions to the liver as well as to the gallbladder wall that were taken down using blunt cautery dissection where appropriate. I then exposed the upper portion of the infundibulum and lower portion of the body. The attachments of the peritoneum and of the fatty tissue and lymphatics were very dense. It required meticulous millimeter by millimeter dissection until the infundibulum could be identified. The lower portion of the infundibulum had the appearance of the cystic duct and when I elevate it, it ruptured. It appeared to be necrotic at that area. I placed a clip across the opening and then dissected further up along behind that area on the medial side dissecting the liver and gallbladder away from each other. This exposed the cystic artery which was clipped and divided. I then worked down where I had placed a clip to be sure that this was closed. It was clear at that point that this had ruptured due to necrosis, most likely from pressure from the stone that was lodged within the neck at that site. I then very carefully and meticulously dissected this part of the neck away from the surrounding tissues using a millimeter by millimeter dissection as well as some blunt dissection using a Kitner. Eventually, I was able to establish a plane behind the stone. The gallbladder wall at that area ruptured again and the stone was extracted. That allowed me then to place more anterior traction on that and establish a plane behind that part of the neck and then work inferiorly where I was able to identify the cystic duct. There was still quite thickened tissue around the cystic duct which again required meticulous dissection to isolate it, but eventually I was able to isolate a cm and placed 2 clips on it. The gallbladder dissection off the liver was then completed and brought it through the upper midline incision where I had to increase the size of the incision in the layers in order to extract the gallbladder within the bag that the gallbladder had been placed into. That introducer was replaced and the liver edge was elevated. There were a few areas of oozing from the gallbladder bed of the liver. These were controlled with cautery. The subdiaphragmatic and subhepatic spaces were irrigated and the irrigation was removed. The gallbladder bed of the liver was again inspected and there was no bleeding. The previously placed clips were inspected and were intact. The gallbladder bed of the liver was filled with FloSeal. A 10 mm Viktor-Pak was cut to size and brought out through the anterior axillary introducer site where it was secured with a 3-0 nylon. It was placed in the subhepatic space. The gas was allowed to escape and the introducers were removed. The fascia of the umbilical introducer site and the upper midline introducer sites were closed with interrupted 0 Vicryl and skin of all the incisions was closed with 4-0 Monocryl in either an interrupted or running subcuticular fashion. The skin was anesthetized with 0.5% Marcaine. The skin was cleansed, dried, benzoin placed, Steri-Strips applied. Estimated blood loss was 25 mL. Sponge, needle and instrument counts were correct prior to closure. The patient tolerated surgical procedure without complication and was transferred to recovery. I attest to the content of the Intraoperative Record and any orders documented therein. Any exception s are noted below.
[2018-11-12] MEDS: HYDROmorphone INJ 1 MG/ML SYRINGE IV PRN ×2 (01:58→10:54)
[2018-11-12] MEDS: cefOXitin 2,000 MG in DEXTROSE 5% 50 ML IV SCH ×4 (01:58→21:14)
[2018-11-12] MEDS: OXYCODONE/ACETAMINOPHEN 5mg/325mg TAB PO PRN ×4 (02:27→21:17)
[2018-11-12] MEDS: NSS + 20MEQ KCL 20 MEQ/1,000 ML BAG IV SCH ×2 (04:38→18:36)
[2018-11-12] MEDS ORDERED: ACETAMINOPHEN 325 MG TAB PO PRN (06:56)
[2018-11-12] MEDS ORDERED: ONDANSETRON INJ 2 MG/ML 2 ML VIAL IV PRN (06:56)
[2018-11-12 07:32] LABS: Basophils # (auto) 0.01 K/uL (0-0.2); Basophils % (auto) 0.1 %; Hematocrit (blood only) 34.1 % (37-47); Hemoglobin 11.7 g/dL (12.0-16.0); Immature Granulocytes # (auto) 0.08 K/uL (0.00-0.02); Immature Granulocytes % (auto) 0.6 %; Lymphocytes # (auto) 0.81 K/uL (1.2-3.4); Lymphocytes % (auto) 5.8 %; Mean Corpuscular Hgb Conc 34.3 g/dL (32-36); Mean Corpuscular Volume 88.8 fL (80-100); Mean Platelet Volume 12.4 fL (7.4-10.4); Monocytes # (auto) 1.03 K/uL (0.11-0.59); Monocytes % (auto) 7.4 %; Neutrophils # (auto) 11.97 K/uL (1.4-6.5); Neutrophils % (auto) 86.1 %; Platelet Count 220 K/uL (130-400); RDW Coefficient of Variation 13.4 % (11.5-14.5); RDW Standard Deviation 43.5 fL (36.4-46.3); Red Blood Count 3.84 M/uL (4.2-5.4)
--- NOTE | 2018-11-12 07:57 | Surgery Progress Note ---
Date of Service November 12, 2018 Assessment & Plan (1) Choledocholithiasis with acute cholecystitis: Postoperative day #1 status post laparoscopic cholecystectomy Stable LFTs are pending Encourage ambulation P.o. intake ANGÉLICA with 100 cc of serosanguineous fluid Present on Admission?: Yes Subjective Postoperative day #1 status post laparoscopic cholecystectomy for acute cholecystitis Having mild abdominal discomfort Denies nausea and vomiting Physical Exam Gastrointestinal (Abdomen): Inspection/Auscultation: + abdominal surgical incision (Clean, dry and intact); abdomen not distended Percussion/Palpation: + abdomen tender (Mild diffuse upper) and abdomen soft Results & Data Vital Signs (Past 12 Hours) Vital Signs Temp Pulse Pulse Resp BP Pulse Ox 11/12/18 07:09 36.4 C L 64 18 134/76 94 11/11/18 23:00 36.9 C 70 18 138/79 96 11/11/18 21:00 37.0 C 82 18 134/77 90
[2018-11-12 08:14] LABS: Albumin Level 2.3 gm/dl (3.4-5.0); BUN Creatinine Ratio 17.3 (10-20); Creatinine Clr Calc Pharmacy 84.5 ml/min; Est GFR (African American) 94.2; Est GFR (Non-African American) 81.3; Potassium 4.4 mmol/L (3.5-5.1)
[2018-11-12 08:22] LABS: Albumin Globulin Ratio 0.6 (0.9-2); Bilirubin,Total 2.3 mg/dl (0.2-1); Total Protein 6.3 gm/dl (6.4-8.2)
--- NOTE | 2018-11-12 12:46 | Anesthesiology Progress Note ---
Date of Service November 12, 2018 Anesthesia Post Procedure Vital Signs Vital Signs: Temp Pulse Pulse Pulse Resp BP BP 11/12/18 07:09 36.4 C L 64 18 11/11/18 23:00 36.9 C 70 18 11/11/18 21:00 37.0 C 82 18 11/11/18 18:58 36.8 C 73 18 149/81 H 11/11/18 17:56 36.7 C 73 18 138/80 11/11/18 17:25 36.7 C 73 20 137/79 11/11/18 16:55 36.7 C 71 18 150/81 H 11/11/18 16:41 73 23 153/82 H 11/11/18 16:40 72 20 11/11/18 16:36 71 22 150/86 H 11/11/18 16:35 70 23 11/11/18 16:32 71 23 11/11/18 16:31 69 23 149/83 H 11/11/18 16:30 71 22 11/11/18 16:26 70 22 146/81 H 11/11/18 16:25 71 21 11/11/18 16:22 71 20 11/11/18 16:21 70 20 147/81 H 11/11/18 16:20 71 22 11/11/18 16:16 71 20 147/77 H 11/11/18 16:15 72 20 11/11/18 16:11 73 20 142/76 H 11/11/18 16:10 72 18 11/11/18 16:07 72 20 11/11/18 16:06 73 19 134/80 11/11/18 16:05 73 20 11/11/18 16:01 72 21 143/82 H 11/11/18 16:00 73 20 11/11/18 15:56 70 24 150/87 H 11/11/18 15:55 71 21 11/11/18 15:51 67 21 11/11/18 15:50 67 18 147/76 H 11/11/18 15:46 68 19 141/75 H 11/11/18 15:45 69 17 11/11/18 15:41 75 22 145/80 H 11/11/18 15:40 65 20 11/11/18 15:36 66 18 144/78 H 11/11/18 15:35 67 19 11/11/18 15:31 66 19 138/74 11/11/18 15:30 67 13 11/11/18 15:26 69 15 141/75 H 11/11/18 15:25 67 18 11/11/18 15:21 71 20 140/83 11/11/18 15:20 73 24 11/11/18 15:19 36.5 C 72 72 20 140/75 BP Pulse Ox 11/12/18 07:09 134/76 94 11/11/18 23:00 138/79 96 11/11/18 21:00 134/77 90 11/11/18 18:58 93 11/11/18 17:56 94 11/11/18 17:25 93 11/11/18 16:55 92 11/11/18 16:41 94 11/11/18 16:40 95 11/11/18 16:36 95 11/11/18 16:35 95 11/11/18 16:32 95 11/11/18 16:31 96 11/11/18 16:30 95 11/11/18 16:26 94 11/11/18 16:25 94 11/11/18 16:22 94 11/11/18 16:21 94 11/11/18 16:20 94 11/11/18 16:16 94 11/11/18 16:15 94 11/11/18 16:11 95 11/11/18 16:10 95 11/11/18 16:07 95 11/11/18 16:06 94 11/11/18 16:05 95 11/11/18 16:01 93 11/11/18 16:00 92 11/11/18 15:56 95 11/11/18 15:55 95 11/11/18 15:51 89 L 11/11/18 15:50 90 11/11/18 15:46 90 11/11/18 15:45 91 11/11/18 15:41 96 11/11/18 15:40 95 11/11/18 15:36 95 11/11/18 15:35 95 11/11/18 15:31 96 11/11/18 15:30 94 11/11/18 15:26 94 11/11/18 15:25 94 11/11/18 15:21 92 11/11/18 15:20 93 11/11/18 15:19 140/73 94 Pain Intensity Right Upper Abdomen: Pain Intensity: 0 Medial Back: Pain Intensity: 0 Notes Mental Status: alert / awake / arousable and participated in evaluation Nausea / Vomiting: adequately controlled Pain: adequately controlled Airway Patency, RR, SpO2: stable & adequate BP & HR: stable & adequate Hydration State: stable & adequate
--- NOTE | 2018-11-12 12:53 | Progress Note ---
DATE: 11/12/2018 SUBJECTIVE: The patient is postop day 1 for laparoscopic cholecystectomy the day prior she had an ERCP which did not show any common duct stones. A sphincterotomy was performed and the duct dragged without any recovery of any stones or debris. During her laparoscopic cholecystectomy, according to Dr. Noriega's note, she had a stone stuck in the neck of her gallbladder and the gallbladder was purulent and the cystic duct appeared somewhat necrotic. Currently, the patient has a little bit of postoperative pain, has a ANGÉLICA drain in. She is doing well. Her vital signs are normal. LABORATORY DATA: Shows hemoglobin of 11.7, white count 13.9, platelets 220,000. Bilirubin is 2.3, AST 37, ALT 177, alkaline phosphatase 208. IMPRESSION: The patient is recovering from her laparoscopic cholecystectomy for acute cholecystitis. She is doing well at this point and I expect that her liver test abnormalities are the result of the acute inflamed gallbladder and should recover back to normal in 6-8 weeks. We will sign off this at this time. Please contact if there is any further GI input as needed.
--- NOTE | 2018-11-12 17:48 | Hospitalist Progress Note ---
Date of Service November 12, 2018 Assessment & Plan (1) Choledocholithiasis with acute cholecystitis: Present on admission Status post laparoscopic cholecystectomy by Dr. Noriega Recovering well Continue pain management Diet [id number], tolerating well (2) RUQ abdominal pain: Present on admission with RUQ abdominal pain associated with nausea/vomiting and diarrhea Gallbladder u/s showed hyperechogenicity along the portal triads in the liver parenchyma can be seen in the setting of hepatic arteriosclerosis and cholelithiasis. CT abd/pelvis showed cholelithiasis with mild gallbladder distention and suggestion of mild gallbladder wall thickening. Elevated liver enzymes on admission Appreciate GI input, status post ERCP Underwent laparoscopic cholecystectomy Covering well postop, as ANGÉLICA drain Continue management as per surgery (3) Gallstones: Present on admission with RUQ abdominal pain associated with nausea/vomiting and diarrhea Gallbladder u/s showed hyperechogenicity along the portal triads in the liver parenchyma can be seen in the setting of hepatic arteriosclerosis and cholelithiasis. CT abd/pelvis showed cholelithiasis with mild gallbladder distention and suggestion of mild gallbladder wall thickening. MRCP showed cholelithiasis with gallbladder distention, mild wall thickening and trace pericholecystic fluid/edema suggests acute cholecystitis. Elevated liver enzymes on admission, trending down slowly Status post ERCP on 11/10/2018 Followed by laparoscopic cholecystectomy on 11/11/2018 Doing well postoperatively tolerating diet, ambulating independently room Possible discharge home if okay by surgery (4) Transaminitis: Secondary to acute cholecystitis/cholelithiasis AST ALT level continues to improve Status post cholecystectomy today-laparoscopic procedure Follow daily labs (5) Jaundice: Secondary to acute cholecystitis Gallbladder u/s showed hyperechogenicity along the portal triads in the liver parenchyma can be seen in the setting of hepatic arteriosclerosis and cholelithiasis. MRCP showed Multiple filling defects within the cystic duct suggestive of small gallstones. Additionally there is choledocholithiasis. Status post laparoscopic cholecystectomy, repeat liver function test in a.m. GI and surgery following CODE STATUS FULL CODE Disposition Will discharge once medically stable Subjective Feels fine, patient walking on the hallway, tolerating diet, not had a bowel movement yet Physical Exam Constitutional: WD/WN, vitals as above well developed; no acute distress Eyes: + anicteric sclerae Respiratory: normal respiratory effort, lungs clear to auscultation normal respiratory effort Cardiovascular: RRR, no murmur, no edema Rate/Rhythm: regular rate and regular rhythm Gastrointestinal (Abdomen): Inspection/Auscultation: + abdomen abnormal to inspection (Status post laparoscopic cholecystectomy, ANGÉLICA drain present, draining minimum serosanguineous fluid), abdomen not distended and + abnormal bowel sounds Percussion/Palpation: abdomen not rigid and no abdominal mass Skin: no rashes, warm and dry Neurologic: PERRL, EOMI, accommodation nl, no face palsy, no dysarthria moves all extremities Psychiatric: A+Ox3, euthymic affect Results & Data Vital Signs (Past 12 Hours) Vital Signs Temp Pulse Resp BP BP Pulse Ox 11/12/18 15:40 36.6 C 73 20 138/83 92 11/12/18 07:09 36.4 C L 64 18 134/76 94
[2018-11-12] MEDS: SODIUM CHLORIDE 0.9% 1000ML 1,000 ML IV SCH (18:34)
[2018-11-12] MEDS ORDERED: DOCUSATE SODIUM/SENNA 50/8.6MG TAB PO ONE (19:25)
[2018-11-13] MEDS: cefOXitin 2,000 MG in DEXTROSE 5% 50 ML IV SCH ×3 (02:11→17:19)
[2018-11-13] MEDS: OXYCODONE/ACETAMINOPHEN 5mg/325mg TAB PO PRN ×2 (04:40→12:47)
[2018-11-13 06:37] LABS: Basophils # (auto) 0.02 K/uL (0-0.2); Basophils % (auto) 0.2 %; Eosinophils # (auto) 0.18 K/uL (0-0.5); Hematocrit (blood only) 35.3 % (37-47); Hemoglobin 11.5 g/dL (12.0-16.0); Immature Granulocytes # (auto) 0.07 K/uL (0.00-0.02); Immature Granulocytes % (auto) 0.8 %; Lymphocytes # (auto) 0.99 K/uL (1.2-3.4); Lymphocytes % (auto) 10.7 %; Mean Corpuscular Hgb Conc 32.6 g/dL (32-36); Mean Corpuscular Volume 89.6 fL (80-100); Monocytes # (auto) 0.86 K/uL (0.11-0.59); Monocytes % (auto) 9.3 %; Neutrophils # (auto) 7.11 K/uL (1.4-6.5); Platelet Count 281 K/uL (130-400); RDW Coefficient of Variation 13.4 % (11.5-14.5); RDW Standard Deviation 44.1 fL (36.4-46.3); Red Blood Count 3.94 M/uL (4.2-5.4); White Blood Count 9.23 K/uL (4.8-10.8)
[2018-11-13 07:07] LABS: Albumin Level 2.3 gm/dl (3.4-5.0); BUN Creatinine Ratio 12.3 (10-20); Calcium 8.8 mg/dl (8.5-10.1); Creatinine Clr Calc Pharmacy 82.4 ml/min; Est GFR (African American) 91.4; Est GFR (Non-African American) 78.9; Potassium 3.7 mmol/L (3.5-5.1)
[2018-11-13 07:11] LABS: Albumin Globulin Ratio 0.6 (0.9-2); Bilirubin,Total 1.4 mg/dl (0.2-1); Total Protein 6.3 gm/dl (6.4-8.2)
--- NOTE | 2018-11-13 07:49 | Surgery Progress Note ---
Date of Service November 13, 2018 Assessment & Plan (1) Choledocholithiasis with acute cholecystitis: Postoperative day #2 status post laparoscopic cholecystectomy Doing well Bilirubin has decreased to 1.4 and other LFTs also trending towards normal Continue to encourage ambulation From a surgical standpoint is ready for discharge whenever it is deemed acceptable by the internal medicine team Discontinue drain prior to discharge Discussed discharge instructions Present on Admission?: Yes Subjective Postoperative day #2 status post laparoscopic cholecystectomy Feels better today Ambulated in halls yesterday Tolerating diet Having mild to moderate abdominal discomfort but is only up where the drain is located ANGÉLICA had 100 cc of serosanguineous fluid yesterday and 10 cc over the last shift Physical Exam Gastrointestinal (Abdomen): Inspection/Auscultation: + abdominal surgical incision (Clean dry and intact); abdomen not distended Percussion/Palpation: + abdomen tender (Incisional only) and abdomen soft Results & Data Vital Signs (Past 12 Hours) Vital Signs Temp Pulse Resp BP BP Pulse Ox 11/13/18 07:18 36.8 C 85 18 144/86 H 91 11/12/18 23:00 36.8 C 78 18 147/74 H 91 Laboratory Results 11/13/18 11/13/18 11/12/18 Range/Units 05:52 05:52 06:43 WBC 9.23 (4.8-10.8) K/uL RBC 3.94 L (4.2-5.4) M/uL Hgb 11.5 L (12.0-16.0) g/dL Hct 35.3 L (37-47) % MCV 89.6 (80-100) fL MCH 29.2 (25-34) pg MCHC 32.6 (32-36) g/dL RDW Std Deviation 44.1 (36.4-46.3) fL RDW Coeff of [place] 13.4 (11.5-14.5) % Plt Count 281 (130-400) K/uL MPV 12.0 H (7.4-10.4) fL Immature Gran % (Auto) 0.8 % Neut % (Auto) 77.0 % Lymph % (Auto) 10.7 % [place] % (Auto) 9.3 % Eos % (Auto) 2.0 % Baso % (Auto) 0.2 % Immature Gran # (Auto) 0.07 H (0.00-0.02) K/uL Neut # (Auto) 7.11 H (1.4-6.5) K/uL Lymph # (Auto) 0.99 L (1.2-3.4) K/uL [place] # (Auto) 0.86 H (0.11-0.59) K/uL Eos # (Auto) 0.18 (0-0.5) K/uL Baso # (Auto) 0.02 (0-0.2) K/uL Sodium 137 138 (136-145) mmol/L Potassium 3.7 D 4.4 (3.5-5.1) mmol/L Chloride 104 104 (98-107) mmol/L Carbon Dioxide 26 25 (21-32) mmol/L Anion Gap 8.0 9.0 (3-11) BUN 10 14 (7-18) mg/dl Creatinine 0.82 0.80 (0.6-1.2) mg/dl Est Cr Clr Drug Dosing 82.4 84.5 ml/min Est GFR ( Amer) 91.4 94.2 Est GFR (Non-Af Amer) 78.9 81.3 BUN/Creatinine Ratio 12.3 17.3 (10-20) Glucose 99 100 H (70-99) mg/dl Calcium 8.8 9.0 (8.5-10.1) mg/dl Total Bilirubin 1.4 H 2.3 H (0.2-1) mg/dl AST 23 37 (15-37) U/L ALT 126 H 177 H (12-78) U/L Alkaline Phosphatase 185 H 208 H (45-117) U/L Total Protein 6.3 L 6.3 L (6.4-8.2) gm/dl Albumin 2.3 L 2.3 L (3.4-5.0) gm/dl Globulin 4.0 4.0 (2.5-4.0) gm/dl Albumin/Globulin Ratio 0.6 L 0.6 L (0.9-2) Lipase 53 L 47 L (73-393) U/L
[2018-11-13] MEDS ORDERED: POLYETHYLENE (MIRALAX) 17 GM PACK PO SCH (09:00)
[2018-11-13] MEDS: HYDROmorphone INJ 1 MG/ML SYRINGE IV PRN (15:41)
--- NOTE | 2018-11-13 16:14 | Surgery Progress Note ---
Date of Service November 13, 2018 Assessment & Plan (1) Choledocholithiasis with acute cholecystitis: the 10 mm flat ANGÉLICA was removed without difficulty after dilaudid was given Subjective 58 y/o female 2 days s/p lap raad by Dr. Noriega, ANGÉLICA drain was ordered to be removed, the patient had significant pain when nursing was removing the drain and called me for assistance Results & Data Vital Signs (Past 12 Hours) Vital Signs Temp Pulse Pulse Resp BP Pulse Ox 11/13/18 14:47 36.8 C 91 H 16 130/76 90 11/13/18 07:18 36.8 C 85 18 144/86 H 91
--- NOTE | 2018-11-13 18:41 | Hospitalist Progress Note ---
Date of Service November 13, 2018 Assessment & Plan (1) Choledocholithiasis with acute cholecystitis: Present on admission Status post laparoscopic cholecystectomy by Dr. Noriega Recovering well Continue pain management Diet [id number], tolerating well ANGÉLICA drain removed today Gallbladder specimen growing Citrobacter Antibiotic changed to . ciprofloxacin as per sensitivity Changed to p.o. Cipro on discharge (2) RUQ abdominal pain: Present on admission with RUQ abdominal pain associated with nausea/vomiting and diarrhea Gallbladder u/s showed hyperechogenicity along the portal triads in the liver parenchyma can be seen in the setting of hepatic arteriosclerosis and cholelithiasis. CT abd/pelvis showed cholelithiasis with mild gallbladder distention and suggestion of mild gallbladder wall thickening. Elevated liver enzymes on admission Appreciate GI input, status post ERCP Underwent laparoscopic cholecystectomy ANGÉLICA drain removed Antibiotic changed to ciprofloxacin as per sensitivity from gallbladder specimen culture Discussed with surgery for duration of antibiotic course (3) Gallstones: Present on admission with RUQ abdominal pain associated with nausea/vomiting and diarrhea Gallbladder u/s showed hyperechogenicity along the portal triads in the liver parenchyma can be seen in the setting of hepatic arteriosclerosis and cholelithiasis. CT abd/pelvis showed cholelithiasis with mild gallbladder distention and suggestion of mild gallbladder wall thickening. MRCP showed cholelithiasis with gallbladder distention, mild wall thickening and trace pericholecystic fluid/edema suggests acute cholecystitis. Elevated liver enzymes on admission, trending down slowly Status post ERCP on 11/10/2018 Followed by laparoscopic cholecystectomy on 11/11/2018 Gallbladder specimen growing Citrobacter, antibiotic adjusted as mentioned above (4) Transaminitis: Secondary to acute cholecystitis/cholelithiasis AST ALT level continues to improve Status post cholecystectomy today-laparoscopic procedure Follow daily labs (5) Jaundice: Secondary to acute cholecystitis Gallbladder u/s showed hyperechogenicity along the portal triads in the liver parenchyma can be seen in the setting of hepatic arteriosclerosis and cholelithiasis. MRCP showed Multiple filling defects within the cystic duct suggestive of small gallstones. Additionally there is choledocholithiasis. Status post laparoscopic cholecystectomy, Patient continues to do well CODE STATUS FULL CODE Disposition Tentative discharge home tomorrow 11/14/2018 if patient remains medically stable Subjective Developed severe right upper quadrant pain when attempting to remove the ANGÉLICA d rain Pain medication given Drain later removed by surgical team, patient reports of improvement of pain and discomfort Minimum soreness around the incision site No nausea vomiting, no fever chills Managed to pass gas, no bowel movement yet She is asked to increase activity as tolerated, will continue bowel regimen To discharge home tomorrow if remains medically stable Physical Exam Constitutional: WD/WN, vitals as above well developed; no acute distress Eyes: + anicteric sclerae ENMT: Mallampati Class: II Neck: normal visual inspection and trachea midline; neck extension not limited Respiratory: normal respiratory effort, lungs clear to auscultation normal respiratory effort Auscultation: lungs clear to auscultation bilaterally Cardiovascular: RRR, no murmur, no edema Rate/Rhythm: regular rate and regular rhythm Heart Sounds: no murmur Vessels: no carotid bruit Gastrointestinal (Abdomen): Inspection/Auscultation: + abdomen abnormal to inspection (Status post laparoscopic cholecystectomy, ANGÉLICA drain removed), abdomen not distended and + abnormal bowel sounds Percussion/Palpation: abdomen not rigid and no abdominal mass Musculoskeletal: Spine: normal cervical ROM Extremities: extremities normal to inspection Skin: no rashes, warm and dry normal turgor and + jaundice Neurologic: PERRL, EOMI, accommodation nl, no face palsy, no dysarthria moves all extremities Motor/Sensory: no sensory deficit Psychiatric: A+Ox3, euthymic affect Orientation: alert and oriented x 3 Lymphatic: no cervical lymphadenopathy Results & Data Vital Signs (Past 12 Hours) Vital Signs Temp Pulse Pulse Resp BP Pulse Ox 11/13/18 14:47 36.8 C 91 H 16 130/76 90 11/13/18 07:18 36.8 C 85 18 144/86 H 91
[2018-11-13] MEDS ORDERED: BISACODYL 5 MG TABEC PO ONE (18:48)
--- NOTE | 2018-11-13 19:17 | Hospitalist Progress Note ---
Date of Service November 13, 2018 Subjective Attending addendum: Pathology of gallbladder: Report available GALLBLADDER, LAPAROSCOPIC CHOLECYSTECTOMY: MARKED ACUTE AND CHRONIC CHOLECYSTITIS WITH SURFACE ULCERATION. CHOLELITHIASIS. Gallbladder specimen culture: Positive for Citrobacter On IV ciprofloxacin as per sensitivity Changed to p.o. ciprofloxacin tomorrow, will need total 7 to 10 days of treatment Kinza Simmons MD Results & Data Vital Signs (Past 12 Hours) Vital Signs Temp Pulse Pulse Resp BP Pulse Ox 11/13/18 14:47 36.8 C 91 H 16 130/76 90 11/13/18 07:18 36.8 C 85 18 144/86 H 91
[2018-11-13] MEDS ORDERED: CIPROFLOXACIN 400 MG/200 ML BAG IV SCH (21:00)
[2018-11-13] MEDS: POLYETHYLENE (MIRALAX) 17 GM PACK PO SCH (21:07)
[2018-11-14] MEDS: OXYCODONE/ACETAMINOPHEN 5mg/325mg TAB PO PRN (03:27)
[2018-11-14 07:52] LABS: Basophils # (auto) 0.02 K/uL (0-0.2); Basophils % (auto) 0.3 %; Eosinophils # (auto) 0.22 K/uL (0-0.5); Eosinophils % (auto) 3.3 %; Hematocrit (blood only) 35.3 % (37-47); Hemoglobin 11.5 g/dL (12.0-16.0); Immature Granulocytes # (auto) 0.06 K/uL (0.00-0.02); Immature Granulocytes % (auto) 0.9 %; Lymphocytes # (auto) 1.49 K/uL (1.2-3.4); Lymphocytes % (auto) 22.6 %; Mean Corpuscular Hgb Conc 32.6 g/dL (32-36); Mean Corpuscular Volume 89.6 fL (80-100); Mean Platelet Volume 11.4 fL (7.4-10.4); Monocytes # (auto) 0.68 K/uL (0.11-0.59); Monocytes % (auto) 10.3 %; Neutrophils # (auto) 4.13 K/uL (1.4-6.5); Neutrophils % (auto) 62.6 %; Platelet Count 299 K/uL (130-400); RDW Standard Deviation 42.7 fL (36.4-46.3); Red Blood Count 3.94 M/uL (4.2-5.4)
[2018-11-14] MEDS ORDERED: CIPROFLOXACIN 500 MG TAB PO SCH (07:55)
[2018-11-14 08:23] LABS: Albumin Level 2.3 gm/dl (3.4-5.0); BUN Creatinine Ratio 11.8 (10-20); Calcium 9.1 mg/dl (8.5-10.1); Creatinine Clr Calc Pharmacy 87.8 ml/min; Est GFR (African American) 98.6; Est GFR (Non-African American) 85.1; Potassium 3.9 mmol/L (3.5-5.1)
[2018-11-14 08:26] LABS: Albumin Globulin Ratio 0.6 (0.9-2); Bilirubin,Total 1.1 mg/dl (0.2-1); Globulin 3.9 gm/dl (2.5-4.0); Total Protein 6.2 gm/dl (6.4-8.2)
[2018-11-14] MEDS: POLYETHYLENE (MIRALAX) 17 GM PACK PO SCH (09:24)
--- NOTE | 2018-11-14 09:33 | Surgery Progress Note ---
Date of Service November 14, 2018 Assessment & Plan (1) Choledocholithiasis with acute cholecystitis: Postoperative day #3 status post laparoscopic cholecystectomy, POD #4 ERCP Doing well Bilirubin has decreased to 1.1 and other LFTs also trending towards normal Continue to encourage ambulation alba drain removed with some difficulty , pain now controlled Discharge home today, discharge instructions reviewed f/u surgical office in 1 week, repeat liver panel with direct bilirubin Rx for Cipro 7 days Rx for Percocet prn pain Dr. Perez has seen and examined pt, agrees with above Supervising Physician Co-Signing Physician Notes I have seen and evaluated the patient and reviewed the medical record. I agree with the documentation as provided in this note by Tasha Aparicio PA-C. Subjective feeling better this morning had difficulty removing drain yesterday, was finally able to be removed able to take deeper breaths now without drain, pain controlled no n/v + bowel movement this morning ready to go home Physical Exam Constitutional: WD/WN, vitals as above no acute distress and not ill appearing Respiratory: normal respiratory effort; no respiratory distress Gastrointestinal (Abdomen): Inspection/Auscultation: abdomen normal to inspection; abdomen not distended Percussion/Palpation: + abdomen tender (at incision sites and drain site, appropriate post op) and abdomen soft; no guarding and abdomen not rigid Skin: no rashes, warm and dry + incision (clean/dry/intact steri strips present) Psychiatric: A+Ox3, euthymic affect Results & Data Vital Signs (Past 12 Hours) Vital Signs Temp Pulse Pulse Resp BP Pulse Ox 11/14/18 07:00 37 C 81 20 148/79 H 91 11/13/18 23:00 37.5 C 83 20 147/78 H 92
--- NOTE | 2018-11-14 09:49 | Hospitalist Progress Note ---
Date of Service November 14, 2018 Assessment & Plan (1) Choledocholithiasis with acute cholecystitis: Choledocholithiasis with acute cholecystitis: Postoperative day #3 status post laparoscopic cholecystectomy, POD #4 ERCP Patient recovering well postoperatively, tolerating diet, pain has resolved, no nausea vomiting had bowel movement today Bilirubin has decreased to 1.1 and other LFTs also trending towards normal alba drain removed yesterday some difficulty , pain now controlled Appreciate input from surgery: Able to be discharged home today f/u surgical office in 1 week, repeat liver panel with direct bilirubin Attending addendum: Pathology of gallbladder: Report available GALLBLADDER, LAPAROSCOPIC CHOLECYSTECTOMY: MARKED ACUTE AND CHRONIC CHOLECYSTITIS WITH SURFACE ULCERATION. CHOLELITHIASIS. Gallbladder specimen culture: Positive for Citrobacter Was treated with IV cefoxitin in hospital sensitive Antibiotic changed to p.o. ciprofloxacin per sensitivity, will be discharged home with p.o. ciprofloxacin for 7 more days l (2) RUQ abdominal pain: Resolved, Will be discharged home with p.o. Percocet as needed, patient is counseled not to take Tylenol while taking Percocet Also drink fluids, stool softeners to prevent narcotic induced constipation Patient willing to utilize [id number] pain medication before reaching out to Percocet if needed Presented on admission with RUQ abdominal pain associated with nausea/vomiting and diarrhea Gallbladder u/s showed hyperechogenicity along the portal triads in the liver parenchyma can be seen in the setting of hepatic arteriosclerosis and cholelithiasis. CT abd/pelvis showed cholelithiasis with mild gallbladder distention and suggestion of mild gallbladder wall thickening. Elevated liver enzymes on admission Appreciate GI input, status post ERCP Underwent laparoscopic cholecystectomy ALBA drain removed yesterday 11/30/2008 Antibiotic changed to ciprofloxacin as per sensitivity from gallbladder specimen culture Stable to be discharged home today (3) Gallstones: Present on admission with RUQ abdominal pain associated with nausea/vomiting and diarrhea Gallbladder u/s showed hyperechogenicity along the portal triads in the liver parenchyma can be seen in the setting of hepatic arteriosclerosis and cholelithiasis. CT abd/pelvis showed cholelithiasis with mild gallbladder distention and suggestion of mild gallbladder wall thickening. MRCP showed cholelithiasis with gallbladder distention, mild wall thickening and trace pericholecystic fluid/edema suggests acute cholecystitis. Elevated liver enzymes on admission, trending down slowly Status post ERCP on 11/10/2018 Followed by laparoscopic cholecystectomy on 11/11/2018 Pathology of gallbladder shows acute inflammation no malignancy noted Gallbladder specimen growing Citrobacter, antibiotic adjusted as mentioned above (4) Transaminitis: Secondary to acute cholecystitis/cholelithiasis AST ALT level continues to improve Status post cholecystectomy today-laparoscopic procedure Repeat LFT in 1 week (5) Jaundice: Secondary to acute cholecystitis Gallbladder u/s showed hyperechogenicity along the portal triads in the liver parenchyma can be seen in the setting of hepatic arteriosclerosis and cholelithiasis. MRCP showed Multiple filling defects within the cystic duct suggestive of small gallstones. Additionally there is choledocholithiasis. Status post laparoscopic cholecystectomy, Patient continues to do well Bilirubin decreased to 1.1 with improvement of AST ALT and alk phos To be discharged home today, outpatient lab: Liver function test in 1 week CODE STATUS FULL CODE Disposition Stable to be discharged home today Subjective Feels fine this morning, has no right upper quadrant pain, no nausea vomiting finished breakfast Afebrile Had bowel movement this morning . Patient feels well to return back home Followed by surgery team earlier this morning, stable to be discharged home Physical Exam Constitutional: WD/WN, vitals as above well developed; no acute distress Eyes: + anicteric sclerae Neck: normal visual inspection and trachea midline Respiratory: normal respiratory effort Auscultation: lungs clear to auscultation bilaterally Cardiovascular: RRR, no murmur, no edema Rate/Rhythm: regular rate and regular rhythm Gastrointestinal (Abdomen): Inspection/Auscultation: + abdomen abnormal to inspection (Status post laparoscopic cholecystectomy, ALBA drain removed), abdomen not distended and + abnormal bowel sounds Musculoskeletal: Extremities: extremities normal to inspection Skin: no rashes, warm and dry Neurologic: PERRL, EOMI, accommodation nl, no face palsy, no dysarthria Psychiatric: A+Ox3, euthymic affect Orientation: alert Results & Data Vital Signs (Past 12 Hours) Vital Signs Temp Pulse Pulse Resp BP Pulse Ox 11/14/18 07:00 37 C 81 20 148/79 H 91 11/13/18 23:00 37.5 C 83 20 147/78 H 92
--- NOTE | 2018-11-14 09:50 | Discharge Summary ---
Date of Service November 14, 2018 Admission HPI Per Admitting Provider For ERCP Principal Diagnosis Acute cholecystitis Discharge Exam Constitutional WD/WN, vitals as above well developed; no acute distress Eyes + anicteric sclerae ENMT Mouth: no dentition abnormality Mallampati Class: II Neck normal visual inspection and trachea midline Respiratory normal respiratory effort, lungs clear to auscultation normal respiratory effort Auscultation: lungs clear to auscultation bilaterally Cardiovascular RRR, no murmur, no edema Rate/Rhythm: regular rate and regular rhythm Heart Sounds: no murmur Vessels: no carotid bruit Gastrointestinal (Abdomen) Inspection/Auscultation: + abdomen abnormal to inspection (Status post laparoscopic cholecystectomy, ALBA drain removed), abdomen not distended and + abnormal bowel sounds Percussion/Palpation: abdomen not rigid and no abdominal mass Musculoskeletal Spine: normal cervical ROM Extremities: extremities normal to inspection Skin no rashes, warm and dry normal turgor and + jaundice Neurologic PERRL, EOMI, accommodation nl, no face palsy, no dysarthria moves all extremities Motor/Sensory: no sensory deficit Psychiatric A+Ox3, euthymic affect Orientation: alert Lymphatic no cervical lymphadenopathy Discharge Data Allergies Allergy/AdvReac Type Severity Reaction Status Date / Time No Known Allergies Allergy Verified 11/08/18 20:45 Consultations 11/08/18 22:40 ED Decision to Admit Stat 11/09/18 00:29 Consult Gastroenterology Routine 11/09/18 01:38 Consult General Surgery Routine Procedures Performed Operation Date: 11/10/18 13:20 Actual Procedures p Endoscopic Retrograde Cholangiopancreatogram, spincterotomy - Jose Geronimo Operation Date: 11/11/18 13:30 Actual Procedures p Laparoscopic Cholecystectomy(Not Applicable) - Dominic Noriega MD Ordered Studies 11/08/18 20:16 US gallbladder Stat 11/08/18 21:10 CT angio chest PE protocol Stat 11/08/18 23:39 CT abd pelvis wo con Urgent 11/09/18 09:18 MR MRCP Urgent 11/10/18 15:00 FL ERCP biliary ductal Routine Hospital Course (1) Choledocholithiasis with acute cholecystitis: Choledocholithiasis with acute cholecystitis: Postoperative day #3 status post laparoscopic cholecystectomy, POD #4 ERCP Patient recovering well postoperatively, tolerating diet, pain has resolved, no nausea vomiting had bowel movement today Bilirubin has decreased to 1.1 and other LFTs also trending towards normal alba drain removed yesterday some difficulty , pain now controlled Appreciate input from surgery: Able to be discharged home today f/u surgical office in 1 week, repeat liver panel with direct bilirubin Attending addendum: Pathology of gallbladder: Report available GALLBLADDER, LAPAROSCOPIC CHOLECYSTECTOMY: MARKED ACUTE AND CHRONIC CHOLECYSTITIS WITH SURFACE ULCERATION. CHOLELITHIASIS. Gallbladder specimen culture: Positive for Citrobacter Was treated with IV cefoxitin in hospital sensitive Antibiotic changed to p.o. ciprofloxacin per sensitivity, will be discharged home with p.o. ciprofloxacin for 7 more days l (2) RUQ abdominal pain: Resolved, Will be discharged home with p.o. Percocet as needed, patient is counseled not to take Tylenol while taking Percocet Also drink fluids, stool softeners to prevent narcotic induced constipation Patient willing to utilize [id number] pain medication before reaching out to Percocet if needed Presented on admission with RUQ abdominal pain associated with nausea/vomiting and diarrhea Gallbladder u/s showed hyperechogenicity along the portal triads in the liver parenchyma can be seen in the setting of hepatic arteriosclerosis and cholelithiasis. CT abd/pelvis showed cholelithiasis with mild gallbladder distention and suggestion of mild gallbladder wall thickening. Elevated liver enzymes on admission Appreciate GI input, status post ERCP Underwent laparoscopic cholecystectomy ALBA drain removed yesterday 11/30/2008 Antibiotic changed to ciprofloxacin as per sensitivity from gallbladder specimen culture Stable to be discharged home today (3) Gallstones: Present on admission with RUQ abdominal pain associated with nausea/vomiting and diarrhea Gallbladder u/s showed hyperechogenicity along the portal triads in the liver parenchyma can be seen in the setting of hepatic arteriosclerosis and cholelithiasis. CT abd/pelvis showed cholelithiasis with mild gallbladder distention and suggestion of mild gallbladder wall thickening. MRCP showed cholelithiasis with gallbladder distention, mild wall thickening and trace pericholecystic fluid/edema suggests acute cholecystitis. Elevated liver enzymes on admission, trending down slowly Status post ERCP on 11/10/2018 Followed by laparoscopic cholecystectomy on 11/11/2018 Pathology of gallbladder shows acute inflammation no malignancy noted Gallbladder specimen growing Citrobacter, antibiotic adjusted as mentioned above (4) Transaminitis: Secondary to acute cholecystitis/cholelithiasis AST ALT level continues to improve Status post cholecystectomy today-laparoscopic procedure Repeat LFT in 1 week (5) Jaundice: Secondary to acute cholecystitis Gallbladder u/s showed hyperechogenicity along the portal triads in the liver parenchyma can be seen in the setting of hepatic arteriosclerosis and cholelithiasis. MRCP showed Multiple filling defects within the cystic duct suggestive of small gallstones. Additionally there is choledocholithiasis. Status post laparoscopic cholecystectomy, Patient continues to do well Bilirubin decreased to 1.1 with improvement of AST ALT and alk phos To be discharged home today, outpatient lab: Liver function test in 1 week CODE STATUS FULL CODE Disposition Stable to be discharged home today Total Time Total Time Spent Total Time Spent (In Minutes): Approximate 45 minutes Total Time Includes: Examination of the Patient, Discharge Planning, Medication Reconciliation and Communication With Other Providers Discharge Plan Discharge Items Patient Disposition: Home - Self-Care Reason For Visit: ABD PAIN, ABN LFTS Discharge Diagnosis: acute cholecystitis (inflammation of gallbladder) Discharge Goals: Decrease discomfort Activity: Per 'Additional Instructions' section Non-emergency contact: Primary Care Provider Call non-emergency contact if: you have any medication questions Follow-up/Referrals: Dominic Noriega MD [Physician] - (Surgery follow-up with Dr. Noriega in 1 week, please call office for appointment) Linnea Proctor PA-C [Primary Care Provider] - Diet: Low Fat Diet Comment: continue low fat diet for 1-2 weeks , then gradually advance as tolerated Addtl Provider Instructions: Hospital follow-up with family physician: Luz Elena Beck PA-C [facility] Lab work: Liver function test check in a week On Saturday11/19/2018 at 11:00 AM Surgery follow-up with Dr. Noriega In a week, please call office for appointment Surgical discharge instructions: - No heavy lifting over 10 pounds for 2 weeks - No strenuous activity until cleared by surgeon - No submerging incisions underwater for 2 weeks (no bathing, swimming, or hot tubs) - No driving while taking narcotic pain medication or until you are pain free (at least 1 week) - You may shower. Let water run over incisions and drain site. Cover drain site and change daily or as needed to keep clean and dry. - Leave steri strips on incisions for 7 days and then remove. - walking and light activity encouraged daily to prevent blood clots from forming in your legs - You can take Percocet as needed for moderate to severe pain. Take as directed. - May take extra strength Tylenol or Ibuprofen as needed for mild pain, avoid Tylenol while taking Percocet as Percocet has Tylenol in it. - Finish course of antibiotic as prescribed. - Will want to repeat LFTS with direct bilirubin in 1 week prior to office visit. -Follow-up in surgical office in 1 week. Please call office at [phone] to make an appointment. Prescriptions: New ciprofloxacin HCl 500 mg Tablet 500 mg PO BID 7 Days Qty: 14 RF: 0 oxycodone-acetaminophen [Percocet] 5-325 mg Tablet 1 tab PO Q8 PRN (Reason: pain) Qty: 10 RF: 0 Continued ondansetron 4 mg Tablet,Disintegrating 4 mg PO Q8H PRN (Reason: Nausea) RF: 0 Stand-Alone Forms: [facility] Discharge Orders: Discharge Order (Routine); Ordered 11/14/18 Ordered By: Kinza Simmons Admission Data Admit Date/Time: 11/08/18 23:39 Attending Provider: Kinza Simmons Admit Provider: Ismael Pena Primary Care Provider: Linnea Proctor Other Providers: Tere Aguilar ; Ismael Pena ; Jose Geronimo Mark Service: Medical Other Interventions: Discharge Summary Assessment (RN) Last Done: 11/14/18 09:40
== END 2018-11-14 09:58 | disposition home or self-care (01) | DRG 418 ==
LOC: ED 20:01 → SUATTDRO 23:39 → 2W 23:39